=== PATIENT | female | born 1935 | race Caucasian/White ===

== ENCOUNTER → 2017-03-04 | Outpatient (CLI) | payer MEDICARE, BC, SELFPAY | PROVIDERS: Visit Provider Family Medicine | DX: N30.20 Other chronic cystitis without hematuria (principal); L29.3 Anogenital pruritus, unspecified | CPT/HCPCS: 80202; 96365; 96366; J3370 ==

== ENCOUNTER → 2017-03-22 18:01 | Outpatient (REF) | payer MEDICARE, BC, SELFPAY | LOC: LAB 18:01 | PROVIDERS: Visit Provider Urology | DX: N30.20 Other chronic cystitis without hematuria (principal) | CPT/HCPCS: 87086; 87088; 87186 ==

== ENCOUNTER → 2017-04-11 12:20 | Outpatient (CLI) | payer MEDICARE, BC, SELFPAY ==
--- NOTE | 2017-04-11 12:28 | MM_ITS ---
MM Dig mamm DX unilat RT CAD . ORDERING PHYSICIAN : Ayaan Veronica MD PATIENT AGE: 81 years GENDER: Female COMPARISON: Previous mammograms: 09/10/2016 INDICATION: Follow-up calcifications. TECHNIQUE: Magnification spot CC,, MLO, along with true 90 view right breast RIGHT BREAST: . Extensive calcifications are again seen throughout the right breast.. The larger calcifications are round spherical calcifications as might be seen with lipid cyst and/or fat necrosis. There are also multiple groupings of small punctate calcifications which have been seen previously inner followed today. The small calcifications within these groupings of calcifications have become slightly denser and also note slightly increased in number what appear to be benign round benign-appearing calcifications.. No no branching forms nor significant pleomorphic forms.. These are most all likely benign. I discussed this with technologist and understand she is somewhat difficult patient a she has some difficulty in following instructions and holding still.-Thus Given this combination of these features I believe a follow-up bilateral mammogram in 6 months to resume annual bilateral schedule is most feasible., given these are most likely benign groupings punctate calcifications, such as such as might be seen with benign adenosis The group of calcifications at site labeled A demonstrates progression of dense round benign calcifications with a few additional less well-defined forms, but overall benign appearance which can be followed. The area labeled B and C on the MLO view have slight draping pattern appearance to these dense punctate calcifications which are most likely reflection of a benign process. Area labeled D at the central breast appears to be benign punctate calcifications as well IMPRESSION: . multiple benign-appearing calcification groupings at right breast again evident, but with slight increased density and slight progression of these overall benign morphology calcifications. A difficult mammogram evaluate due these numerous slowly progressing, groups of benign calcifications. Close follow-up right mammogram suggested. Recommend ongoing 6 month follow-up, to resume annual scheduled. . BI-RADS Category: 2 Benign Finding(s) RECOMMENDED FOLLOW-UP: 6M - 6 MONTH FOLLOW-UP to resume annual scheduled (A letter has been sent to the patient regarding results of the study.)
== END ==
PROVIDERS: Family Provider Family Medicine; PCP Family Medicine; Visit Provider Family Medicine
DX: R92.8 Other abnormal and inconclusive findings on diagnostic imaging of breast (principal)
CPT/HCPCS: 77065

== ENCOUNTER 2017-06-06 22:34 | Inpatient (IN) | payer MEDICARE, BC, SELFPAY ==
[2017-06-06 22:40] VITALS: BP 140/53; PULSE 74; RESP 20; TEMP 39.3; O2SAT 91; BMI 25.8
[2017-06-06 23:08] LABS: Microscopic, Urine URINE MICROSCOPIC (MICROSCOPIC)
[2017-06-06 23:13] LABS: Basophils % 0.2 % (0.1-2.0); Eosinophils % 0.1 % (0.1-12.0); Hematocrit 39.5 % (37.0-47.0); Hemoglobin 13.4 g/dL (12.2-16.2); Lymphocytes % 13.5 K/mm3 (10-50); Mean Corpuscular HGB Conc 33.8 g/dL (31.8-35.4); Mean Corpuscular Hemoglobin 31.2 pg (27.0-31.2); Mean Corpuscular Volume 92.1 fl (81-99); Monocytes # 0.4 K/mm3 (0.1-1.0); Monocytes % 5.9 % (1.7-9.3); Neutrophils # 5.8 K/mm3 (1.8-7.8); Neutrophils % 80.3 % (37.0-80.0); Platelet Count 149 K/mm3 (142-424); Red Blood Count 4.29 M/mm3 (4.20-5.40); Red Cell Distribution Width 13.5 % (11.5-17.5); White Blood Count 7.2 K/mm3 (4.8-10.8)
--- NOTE | 2017-06-06 23:18 | HMH.EDAMS ---
ED Disposition Clinical Impression: Febrile illness, acute, Hypokalemia Urinary tract infection Qualifiers: Urinary tract infection type: site unspecified Hematuria presence: without hematuria Qualified Code(s): N39.0 - Urinary tract infection, site not specified Disposition: Admitted as Observation Condition on Discharge: Good Referrals: Ayaan Veronica MD [Primary Care Provider] - - Critical Care Critical Care Time: No Attestation: On 06/06/17, the high probability of a clinically significant, sudden or life threatening deterioration of the following system(s) required my full and direct attention, intervention and personal management. The time I documented below is in addition to time spent performing reported procedures but includes the following listed in this critical care notation. Medical Decision Making - Medical Records Medical records reviewed: Yes: I reviewed the patient's medical records. - Raheem Inquiry Pt receiving controlled substance: No Vital Signs: 06/06/17 22:40 06/07/17 00:07 Temperature 102.8 F H 98.9 F Temperature Source Rectal Oral Pulse Rate [Right Brachial] 74 65 Respiratory Rate 20 18 Blood Pressure [Right Arm] 140/53 121/82 Blood Pressure Mean [Right Arm] 82 95 Blood Pressure Source [Right Arm] Automatic Cuff Automatic Cuff Blood Pressure Position [Right Arm] Supine Supine 02 Sat by Pulse Oximetry 91 L 88 L Oxygen Delivery Method Room Air Room Air - Lab Data Lab results reviewed: Yes: I reviewed the patient's lab results. Lab Results 06/06/17 23:00: Urine Color Yellow, Urine Appearance Clear, Urine pH 6.0, Ur Specific [place] 1.025, Urine Protein 2+, Urine Glucose (UA) Negative, Urine Ketones Negative, Urine Blood 3+, Urine Nitrate Positive, Urine Bilirubin Negative, Urine Urobilinogen 0.2, Ur Leukocyte Esterase Trace, Urine RBC 10-20, Urine WBC 5-10, Urine Bacteria 4+ 06/06/17 23:00: WBC 7.2, RBC 4.29, Hgb 13.4, Hct 39.5, MCV 92.1, MCH 31.2, MCHC 33.8, RDW 13.5, Plt Count 149, MPV 9.0, Neut % (Auto) 80.3 H, Lymph % (Auto) 13.5, Heard % (Auto) 5.9, Eos % (Auto) 0.1, Baso % (Auto) 0.2, Neut # (Auto) 5.8, Lymph # (Auto) 1.0, Heard # (Auto) 0.4, Eos # (Auto) 0.0, Baso # (Auto) 0.0 06/06/17 23:00: Sodium 139, Potassium 2.9 L*, Chloride 100, Carbon Dioxide 31, Anion Gap 10.9, BUN 21 H, Creatinine 1.00, Estimated Creat Clear 53, Estimated GFR 53 L, Est GFR ( Amer) 65, Glucose 116 H, Calcium 8.7, Total Bilirubin 1.2 H, AST 16, ALT 26, Alkaline Phosphatase 75, Total Protein 6.9, Albumin 3.5, Globulin 3.4 H, Albumin/Globulin Ratio 1.0 L 06/06/17 23:00: Lactic Acid 1.7 Result diagrams: 06/06/17 23:00 06/06/17 23:00 Orders (Tests/Meds): ED MEDICATIONS Generic Name Dose Route Start Last Admin Trade Name Freq PRN Reason Stop Dose Admin Sodium Chloride 1,000 mls @ 999 mls/hr 06/07/17 00:15 06/07/17 00:08 Sod Chlor 0.9% 1000ml Bag IV 06/07/17 01:15 999 mls/hr .Q1H1M LEI Administration Discontinued Medications Generic Name Dose Route Start Last Admin Trade Name Freq PRN Reason Stop Dose Admin Acetaminophen 650 mg 06/06/17 22:50 06/06/17 23:14 Acetaminophen 650mg Suppository RC 06/06/17 22:51 650 mg ONCE ONE Administration ORDERS Category Date Time Status CT abdomen pelvis wo con Stat Cat Scan 06/06/17 23:37 Taken CXR AP view [XR chest AP] Stat Exams 06/06/17 23:37 Taken Blood Culture Stat Micro 06/06/17 23:00 Received Urine Culture Stat Micro 06/06/17 23:54 Received - Radiology Data #1 Image(s): Chest Image Reviewed: Yes I reviewed the patient's radiology image Preliminary Findings: Normal/NAD - CT Data CT Scan: Abdomen, Pelvis Time Received: 00:[address] Reviewed: Yes: I have viewed the radiologist's interpretation Preliminary Findings: Abnormal (see report) - Physician Consults Physician Consulted: navin Reason -: Admission Altered Mental Status HPI - General Chief Complaint: Urogenital-Fema
[2017-06-06 23:25] LABS: Appearance,Urine CLEAR (Clear); Bilirubin,Urine Negative (Negative); Blood, Urine 3+ (Negative); Color,Urine YELLOW (Yellow); Glucose,Urine (UA) Negative (Negative); Ketones,Urine Negative (Negative); Leukocyte Esterase,Urine TRACE (Negative); Nitrate,Urine POSITIVE (Negative); Protein,Urine 2+ (Negative); Specific Gravity, Urine 1.025 (1.005-1.030); Urobilinogen,Urine 0.2 EU/dl (0.2)
[2017-06-06 23:26] LABS: Lactic Acid 1.7 mmol/L (0.4-2.0)
--- NOTE | 2017-06-06 23:37 | XR_ITS ---
XR chest AP HISTORY: ITS.REASON: cough ORDERING PHYSICIAN: Ayaan Veronica MD PATIENT AGE: 81 years COMPARISON: 01/26/2017 FINDINGS: The cardiomediastinal silhouette and pulmonary vascularity are within normal limits. The lungs are clear without infiltrates, suspicious nodules, or pleural effusions. There are some increased markings in right lung base medially probably due to vascular overlap of may be confirmed with follow-up PA and lateral chest. No acute bony abnormalities. IMPRESSION: No acute finding. Please see above for detail
--- NOTE | 2017-06-06 23:37 | CT_ITS ---
CT abdomen pelvis wo con CLINICAL INDICATION: Generalized abdominal pain ITS.REASON: abd pain ORDERING PHYSICIAN: Ayaan Veronica MD PATIENT AGE: 81 years COMPARISON: 07 27 15 TECHNIQUE: Axial images obtained with sagittal and coronal reformats. PROCEDURE: Oral Contrast: None IV Contrast: None . FINDINGS: Atelectatic or fibrotic changes are present in the lung bases with subpleural nodularity left lung base posterior laterally slightly more prominent on today's exam measuring approximately 9 mm. Mild fatty liver with scattered calcifications in the liver and the spleen. No focal liver lesion. The gallbladder and pancreas and adrenal glands have an unremarkable unenhanced CT appearance. 13 mm isodensity upper pole left kidney and may be related to a cyst. There is mild ectasia of both renal collecting systems and ureters. Urinary bladder is not significantly distended. No obvious obstructing renal or ureteral calculi. Unremarkable appendix. No evidence of intestinal obstruction or free air. There are a few scattered air-fluid levels within nondistended small bowel nonspecific. Prior hysterectomy. No pelvic mass or focal inflammatory change or abnormal fluid collection. Chronic wedge compression changes are present at L1. IMPRESSION: 1. Mild prominence of the renal collecting systems and ureters possibly related to patient's hydration status with diuresis. No obstructing lesions or bladder outlet obstruction evident 2. No definite acute abdominal or pelvic findings. 3. Left lower lobe atelectasis or fibrosis with subpleural nodular component slightly more prominent. Continued follow-up recommended.
[2017-06-06 23:39] LABS: Alanine Aminotransferase 26 U/L (12-78); Albumin Level 3.5 gm/dL (3.4-5.0); Alkaline Phosphatase 75 U/L (46-116); Anion Gap 10.9 mEq/L (5-15); Aspartate Amino Transferase 16 U/L (15-37); Bilirubin,Total 1.2 mg/dL (0.2-1.0); Blood Urea Nitrogen 21 mg/dL (7-18); Calcium 8.7 mg/dL (8.5-10.1); Carbon Dioxide 31 mmol/L (21.0-32.0); Chloride 100 mmol/L (98-107); Creatinine Clearance Estimated 53 mL/min (0-300); Estimated Glomerular Filt Rate 53 ml/min (>60); GFR (African American) 65 ML/MIN (>60); Globulin 3.4 gm/dl (1.3-3.2); Glucose 116 mg/dL (74-106); Sodium 139 mmol/L (136-145); Total Protein,Serum 6.9 gm/dL (6.4-8.2)
[2017-06-06 23:46] LABS: Potassium 2.9 mmoL/L (3.5-5.1)
--- NOTE | 2017-06-06 23:47 | PC.NURSE ---
K+ 2.[address] Kendall
[2017-06-06 23:56] LABS: Bacteria,Urine 4+ /lpf
[2017-06-07] VITALS (9 sets, daily range): BP systolic 99–154; BP diastolic 50–82; PULSE 62–82; RESP 18–22; TEMP 37–39.4; O2SAT 88–96; BMI 28.6
--- NOTE | 2017-06-07 02:16 | PC.NURSE ---
Patient is a 81 year old white female admitted from Home with UTI. Family states has had a mental status change. Patient has a history of dementia and Alzheimers. Family also states a history of UTI'S. Patient has short term memory loss, impaired terminal system operator memory. Knows place, name, , and president at this time. Has been incontinent of urine. Is total dependent with home medications. Walks with a cane. Lungs are clear, resp even and non labored, abd soft and nontender. Is not able to state last BM, skin is intact.family doesn't know. Lives with spouse, 2 adult sons very involved in care also the poa's. Is afebrile at this time, v/s within normal range. IV is patent, bed locked in low position, side rails up x 2, call light within reach. Encouraged to use call light for needs. Was oriented to the unit. Will continue to monitor. .
--- NOTE | 2017-06-07 07:27 | P.CONPHA_ITS ---
[facility] Pharmacy VTE Monitoring - Patient Demographics Admission date: 06/07/17 Report Date: 06/07/17 Time: 07:26 Allergies/Adverse Reactions: Patient Allergies brompheniramine [From DRIXORAL] Allergy (Unknown, Verified 06/06/17 23:13) cephalexin [CEPHALEXIN] Allergy (Unknown, Verified 06/06/17 23:13) Cephalosporins [CEPHALOSPORINS] Allergy (Unknown, Verified 06/06/17 23:13) dexbrompheniramine [From DRIXORAL] Allergy (Unknown, Verified 06/06/17 23:13) ibuprofen [IBUPROFEN] Allergy (Unknown, Verified 06/06/17 23:13) nitrofurantoin [NITROFURANTOIN] Allergy (Unknown, Verified 06/06/17 23:13) Penicillins [PENICILLINS] Allergy (Unknown, Verified 06/06/17 23:13) pseudoephedrine [From DRIXORAL] Allergy (Unknown, Verified 06/06/17 23:13) Sulfa (Sulfonamide Antibiotics) [SULFA (SULFONAMIDE ANTIBIOTICS)] Allergy ( Unknown, Verified 06/06/17 23:13) Height: 1.65 m Weight: 78.103 kg Patient Problems: Current Active Problems Febrile illness, acute (Acute) Urinary tract infection (Acute) Hypokalemia (Acute) - VTE Risk Labs: VTE Related Lab Results Hgb 13.4 g/dL (12.2-16.2) 06/06/17 23:00 Hct 39.5 % (37.0-47.0) 06/06/17 23:00 Plt Count 149 K/mm3 (142-424) 06/06/17 23:00 BUN 21 mg/dL (7-18) H 06/06/17 23:00 Creatinine 1.00 mg/dL (0.55-1.02) 06/06/17 23:00 Estimated Creat Clear 53 mL/min (0-300) 06/06/17 23:00 VTE Score: 5 VTE Risk Level: Low Risk - Prophylaxis VTE Prophylaxis Ordered?: Yes Types of VTE Prophylaxis: TEDS Knee High Location of Applied Device: Bilateral Lower Extremeties - VTE Diagnosis Confirmed Treatment or plan recommended: Continue Current Treatment
[2017-06-07 07:39] LABS: Basophils % 0.2 % (0.1-2.0); Eosinophils % 0.3 % (0.1-12.0); Hematocrit 39.3 % (37.0-47.0); Lymphocytes # 0.4 K/mm3 (0.7-4.5); Lymphocytes % 7.4 K/mm3 (10-50); Mean Corpuscular HGB Conc 33.1 g/dL (31.8-35.4); Mean Corpuscular Hemoglobin 30.7 pg (27.0-31.2); Mean Corpuscular Volume 92.9 fl (81-99); Mean Platelet Volume 8.8 fl (7.4-10.4); Monocytes # 0.3 K/mm3 (0.1-1.0); Monocytes % 5.4 % (1.7-9.3); Neutrophils % 86.7 % (37.0-80.0); Platelet Count 133 K/mm3 (142-424); Red Blood Count 4.23 M/mm3 (4.20-5.40); Red Cell Distribution Width 13.6 % (11.5-17.5); White Blood Count 5.8 K/mm3 (4.8-10.8)
[2017-06-07 07:46] LABS: Blood Urea Nitrogen 16 mg/dL (7-18); Carbon Dioxide 33 mmol/L (21.0-32.0); Chloride 102 mmol/L (98-107); Creatinine Clearance Estimated 55 mL/min (0-300); Creatinine,Serum 0.88 mg/dL (0.55-1.02); Estimated Glomerular Filt Rate 62 ml/min (>60); GFR (African American) 75 ML/MIN (>60); Glucose 102 mg/dL (74-106); Sodium 141 mmol/L (136-145)
[2017-06-07 08:07] LABS: MANUAL DIFFERENTIAL MANUAL DIFFERENTIAL (MANUAL DIFF)
--- NOTE | 2017-06-07 08:36 | XR_ITS ---
XR chest 2V HISTORY: ITS.REASON: Fever ORDERING PHYSICIAN: Ayaan Veronica MD PATIENT AGE: 81 years COMPARISON: 1917 FINDINGS: The cardiomediastinal silhouette and pulmonary vascularity are within normal limits. The lungs are clear without infiltrates, suspicious nodules, or pleural effusions. Previously noted density in the right lung base less apparent consistent with overlying vessel. There is mild wedging of the L1 vertebral body which is chronic. IMPRESSION: No acute finding
[2017-06-07 09:09] LABS: Adenovirus,PCR Not Detected (NotDetected); Bordetella Pertussis Not Detected (NotDetected); Chlamydophila Pneumoniae, PCR Not Detected (NotDetected); Coronavirus 229E Not Detected (NotDetected); Coronavirus NL63 Not Detected (NotDetected); Coronavirus OC43 Not Detected (NotDetected); Coronovirus HKU1,PCR Not Detected (NotDetected); Human Metapneumovirus Not Detected (NotDetected); Influenza A, PCR Not Detected (NotDetected); Influenza AH1, 2009 Not Detected (NotDetected); Influenza AH1, PCR Not Detected (NotDetected); Influenza AH3,PCR Not Detected (NotDetected); Influenza B, PCR Not Detected (NotDetected); Mycoplasma Pneumoniae, PCR Not Detected (NotDected); Parainfluenza 1, PCR Not Detected (NotDetected); Parainfluenza 2, PCR Not Detected (NotDetected); Parainfluenza 3, PCR Not Detected (NotDetected); Parainfluenza 4, PCR Not Detected (NotDetected); Respiratory Syncytial Virus Not Detected (NotDetected); Rhinovirus/Enterovirus Not Detected (NotDetected)
--- NOTE | 2017-06-07 09:28 | HMH.HP ---
*Admission Date: 06/07/17 <Angelica Barron 06/07/17 09:29> *Chief complaint: Altered mental status; fever <Angelica Barron 06/07/17 09:29> *History of present illness: Patient is a poor historian and family is not present. According to ER records she presented via EMS with fever, hypokalemia, altered mental status and foul smelling urine. Workup in the emergency room indicated a urinary tract infection; she continued to have a fever and was admitted for further evaluation and treatment This a.m. denies pain, shortness of breath, abdominal pain, but describes some nausea. <Angelica Barron 06/07/17 09:53> [facility] History Medical History: Reports:: Anxiety, Atherosclerotic Heart Disease, Coronary Artery Disease, Deep Vein Thrombosis, Hypertension, Myocardial Infarction Denies:: Cancer, Diabetes Mellitus Type 1, Diabetes Mellitus Type 2, MRSA <Angelica Barron 06/07/17 09:53> Other Medical History: Reports: Arthritis, Hypothyroidism <Angelica Barron 06/07/17 09:29> Other Surgeries: Yes: Hysterectomy-Total, Other <Angelica Barron 06/07/17 09:53> Amputation: No <Angelica Barron 06/07/17 09:29> Comment: Other surgeries: Kidney stone extraction 1973; D&C 1980; stent placement 1998; patellar fracture 2005; thyroid nodule removed for 2007 leg ulcers 2008: Cataract surgery <Angelica Barron 06/07/17 09:53> - *Social History Educational Level: Completed GED/General Educational Development <Angelica Barron 06/07/17 09:29> Smoking Status: Former smoker <Angelica Barron 06/07/17 09:29> Tobacco Type: cigarettes <Angelica Barron 06/07/17 09:29> # Packs/Day (cigarettes): 1 <Angelica Barron 06/07/17 09:29> #Yrs smoked (if former smoker): 30 <Angelica Barron 06/07/17 09:29> Alcohol Intake: never <Angelica Barron 06/07/17 09:29> Occupational Status: unemployed <Angelica Barron 06/07/17 09:29> Housing: house <Angelica Barron 06/07/17 09:29> Household Members: spouse <Angelica Barron 06/07/17 09:29> - Psychiatric History Expresses thoughts of harming self/others: None <Angelica Barron 06/07/17 09:29> Suicide Plan Description: No Plan <Angelica Barron 06/07/17 09:29> Comment: Dementia <Angelica Barron 06/07/17 09:53> *Family Hx:: Cancer, Coronary Artery Disease, Diabetes, Hyperlipidemia <Angelica Barron 06/07/17 09:53> Review of Systems - Constitutional Reports fever(s) <Angelica Barron 06/07/17 09:53> - ENT Denies sore throat <Angelica Barron 06/07/17 09:53> - *Cardiovascular Denies chest pain, Denies shortness of breath <Angelica Barron 06/07/17 09:53> - *Respiratory Denies cough, Denies shortness of breath <Angelica Barron 06/07/17 09:53> - *Gastrointestinal Reports nausea, Denies abdominal pain <Angelica Barron 06/07/17 09:53> - *Neurologic Reports confusion, Denies seizure-like activity <Angelica Barron 06/07/17 09:29> Meds Home Medications Medication Instructions Recorded Confirmed Type Calcium Carbonate/Vitamin D3 1 tab PO DAILY 06/06/17 06/07/17 History [Calcium 500 mg Chewable Tablet] Cholecalciferol (Vitamin D3) 5,000 unit PO DAILY 06/06/17 06/07/17 History [Vitamin D3] Citalopram Hydrobromide [Celexa] 40 mg PO DAILY 06/06/17 06/07/17 History Donepezil HCl [Aricept 10mg tablet] 10 mg PO HS 06/06/17 06/07/17 History Gabapentin [Neurontin 300mg 300 mg PO HS 06/06/17 06/07/17 History capsule] Levothyroxine Sodium 75 mcg PO DAILY 06/06/17 06/07/17 History [Levothyroxine 75mcg (0.075mg) Tab] Memantine HCl [Memantine HCl] 10 mg PO BID 06/06/17 06/07/17 History Multivitamin [Multivitamins] 1 tab PO DAILY 06/06/17 06/07/17 History Oxybutynin Chloride [Ditropan Xl] 10 mg PO DAILY 06/06/17 06/07/17 History Pantoprazole Sodium [Protonix 40mg 40 mg PO BID 06/06/17 06/07/17 History tablet] Phenazopyridine HCl 200 mg PO TID 06/06/17 06/07/17 History Polyethylene Glycol 3350 [Miralax 17 gm PO DAILY 06/06/17 06/07/17 History 17gm Packet] Simvastatin 40 mg PO HS 06/06/17
[2017-06-07 13:35] LABS: Lymphocytes % 7 % (10-50); Monocytes % 7 % (2-9); Neutrophils % 86 % (42-76); Platelet Estimate Normal; RBC Morphology Normal; Total Cells Counted 100
--- NOTE | 2017-06-07 16:48 | PC.NURSE ---
pt lungs are clear. alert to self, place, and situation. bowel sounds normal and heart sounds normal. no edema noted. teds are on. pt ambulates with assist to bathroom. alarm is on. iv patent and fluids running per order. pt has stated no pain or discomfort. call light in reach and pt oriented on how to use call light. will continue to monitor pt condition.
--- NOTE | 2017-06-07 18:00 | PC.NURSE ---
pt stating pain in legs. prn Tylenol given per may order and warm blanket applied to legs. md on floor and stated that he will put tramadol prn order in if pain hasn't relieved in an hour to give. will check and pass on to oncoming shift.
--- NOTE | 2017-06-07 19:14 | PC.NURSE ---
report given to suyapa ramirez rn
[2017-06-08 04:00] VITALS: BP 109/59; PULSE 65; RESP 22; TEMP 37.2; O2SAT 96
--- NOTE | 2017-06-08 04:48 | PC.NURSE ---
pt had hat in her toilet but urinated behind it
--- NOTE | 2017-06-08 05:20 | PC.NURSE ---
Pt slept well this shift. Nothing acute to report. IV abx and fluids infused well. Pt with repetitive questions concerning where is and when he is coming back. Oriented with each opportunity. Pt rings appropriately, nothing acute or significant to report this shift. Pt remained safe and stable.
--- NOTE | 2017-06-08 07:52 | PC.NURSE ---
Bedside report given to Sunita Madison RN leaving pt safe and stable.
[2017-06-08 08:00] VITALS: BP 106/56; PULSE 61; RESP 18; TEMP 36.9; O2SAT 95
--- NOTE | 2017-06-08 08:13 | HMH.ACPN2 ---
<Angelica Barron - Last Filed: 06/08/17 08:13> Internal Medicine - PN: Subj *Date: 06/08/17 *Time: 08:13 Interval history: Patient and nursing staff state that Ms. Zuniga slept well. She says she does not feel well today. She is having low back pain and lower abdominal pain. She does not have nausea but does not want to eat. Per nursing: Afebrile during the night. Urine culture shows gram-negative rods with pending ID. Exam Vital signs and Labs for Last 24 Hours: Temp Pulse Resp BP Pulse Ox 98.9 F 65 22 109/59 96 06/08/17 04:00 06/08/17 04:00 06/08/17 04:00 06/08/17 04:00 06/08/17 04:00 Laboratory Results - last 24 hr 06/07/17 07:15: Total Counted 100, Neutrophils % (Manual) 86 H, Lymphocytes % (Manual) 7 L, Monocytes % (Manual) 7, Platelet Estimate Normal, RBC Morphology Normal 06/07/17 09:00: Chlamy pneumoniae PCR Not detected, Adenovirus (PCR) Not detected, B.parapertussis DNA PCR Not detected, Coronavirus OC43 (PCR) Not detected, Coronavirus HKU1 (PCR) Not detected, Coronavirus 229E (PCR) Not detected, Coronavirus NL63 (PCR) Not detected, Human Metapneumovir PCR Not detected, Influenza A (H1) PCR Not detected, Influ A (H1N1/09) PCR Not detected, Influenza A (H3) PCR Not detected, Influenza Type A (PCR) Not detected, Influenza Type B (PCR) Not detected, M. pneumoniae (PCR) Not detected, Parainfluenza 1 (PCR) Not detected, Parainfluenza 2 (PCR) Not detected, Parainfluenza 3 (PCR) Not detected, Parainfluenza 4 (PCR) Not detected, RSV (PCR) Not detected, Entero/Rhino (PCR) Not detected I & O for Last 24 hours: Intake & Output 06/05/17 06/06/17 06/07/17 06/08/17 11:59 11:59 11:59 11:59 Intake Total 180 / 1780 1462 / 1462 Balance 180 / 1780 1462 / 1462 Weight 172 lb 3 oz - Constitutional no acute distress Comments: Awake and alert; sitting up in the bed; assisted with drinking water. - *Routine Respiratory Exam Comments: Bilateral upper airway sounds. - *Routine Cardiovascular Exam Present: RRR - *Routine Abdominal Exam Present: soft, normoactive bowel sounds, tenderness (Suprapubic region.) - *Routine Extremities Exam Absent: edema, calf tenderness - *Routine Neurological Exam Present: alert (Asking for her .) Assessment and Plan (1) Urinary tract infection Current visit: Yes Status: Acute Qualifiers: Urinary tract infection type: site unspecified Hematuria presence: without hematuria Qualified Code(s): N39.0 - Urinary tract infection, site not specified Category: Medical Code(s): N39.0 - Urinary tract infection, site not specified (2) Febrile illness, acute Current visit: Yes Status: Acute Category: Medical Code(s): R50.9 - Fever, unspecified (3) Dementia Current visit: Yes Status: Chronic Category: Medical Code(s): F03.90 - Unspecified dementia without behavioral disturbance (4) Hypothyroidism Current visit: Yes Status: Chronic Category: Medical Code(s): E03.9 - Hypothyroidism, unspecified (5) CAD (coronary artery disease) Current visit: Yes Status: Chronic Category: Medical Code(s): I25.10 - Atherosclerotic heart disease of [place] coronary artery without angina pectoris (6) Hypokalemia Current visit: Yes Status: Acute Category: Medical Code(s): E87.6 - Hypokalemia <Ayaan Veronica - Last Filed: 06/08/17 09:18> Internal Medicine - PN: Subj *Date: 06/08/17 *Time: 09:15 Exam Vital signs and Labs for Last 24 Hours: Temp Pulse Resp BP Pulse Ox 98.5 F 61 18 106/56 95 06/08/17 08:00 06/08/17 08:00 06/08/17 08:00 06/08/17 08:00 06/08/17 08:00 Laboratory Results - last 24 hr 06/07/17 07:15: Total Counted 100, Neutrophils % (Manual) 86 H, Lymphocytes % (Manual) 7 L, Monocytes % (Manual) 7, Platelet Estimate Normal, RBC Morphology Normal 06/07/17 09:00: Chlamy pneumoniae PCR Not detected, Adenovirus (PCR) Not detected, B.parapertussis DNA PCR Not detected, Co
--- NOTE | 2017-06-08 08:16 | P.PN_ITS ---
<Angelica Barron - Last Filed: 06/08/17 08:13> Internal Medicine - PN: Subj *Date: 06/08/17 *Time: 08:13 Interval history: Patient and nursing staff state that Ms. Zuniga slept well. She says she does not feel well today. She is having low back pain and lower abdominal pain. She does not have nausea but does not want to eat. Per nursing: Afebrile during the night. Urine culture shows gram-negative rods with pending ID. Exam Vital signs and Labs for Last 24 Hours: Temp Pulse Resp BP Pulse Ox 98.9 F 65 22 109/59 96 06/08/17 04:00 06/08/17 04:00 06/08/17 04:00 06/08/17 04:00 06/08/17 04:00 Laboratory Results - last 24 hr 06/07/17 07:15: Total Counted 100, Neutrophils % (Manual) 86 H, Lymphocytes % ( Manual) 7 L, Monocytes % (Manual) 7, Platelet Estimate Normal, RBC Morphology Normal 06/07/17 09:00: Chlamy pneumoniae PCR Not detected, Adenovirus (PCR) Not detected, B.parapertussis DNA PCR Not detected, Coronavirus OC43 (PCR) Not detected, Coronavirus HKU1 (PCR) Not detected, Coronavirus 229E (PCR) Not detected, Coronavirus NL63 (PCR) Not detected, Human Metapneumovir PCR Not detected, Influenza A (H1) PCR Not detected, Influ A (H1N1/09) PCR Not detected , Influenza A (H3) PCR Not detected, Influenza Type A (PCR) Not detected, Influenza Type B (PCR) Not detected, M. pneumoniae (PCR) Not detected, Parainfluenza 1 (PCR) Not detected, Parainfluenza 2 (PCR) Not detected, Parainfluenza 3 (PCR) Not detected, Parainfluenza 4 (PCR) Not detected, RSV (PCR ) Not detected, Entero/Rhino (PCR) Not detected I & O for Last 24 hours: Intake & Output 06/05/17 06/06/17 06/07/17 06/08/17 11:59 11:59 11:59 11:59 Intake Total 180 / 1780 1462 / 1462 Balance 180 / 1780 1462 / 1462 Weight 172 lb 3 oz - Constitutional no acute distress Comments: Awake and alert; sitting up in the bed; assisted with drinking water. - *Routine Respiratory Exam Comments: Bilateral upper airway sounds. - *Routine Cardiovascular Exam Present: RRR - *Routine Abdominal Exam Present: soft, normoactive bowel sounds, tenderness (Suprapubic region.) - *Routine Extremities Exam Absent: edema, calf tenderness - *Routine Neurological Exam Present: alert (Asking for her .) Assessment and Plan (1) Urinary tract infection Current visit: Yes Status: Acute Qualifiers: Urinary tract infection type: site unspecified Hematuria presence: without hematuria Qualified Code(s): N39.0 - Urinary tract infection, site not specified Category: Medical Code(s): N39.0 - Urinary tract infection, site not specified (2) Febrile illness, acute Current visit: Yes Status: Acute Category: Medical Code(s): R50.9 - Fever , unspecified (3) Dementia Current visit: Yes Status: Chronic Category: Medical Code(s): F03.90 - Unspecified dementia without behavioral disturbance (4) Hypothyroidism Current visit: Yes Status: Chronic Category: Medical Code(s): E03.9 - Hypothyroidism, unspecified (5) CAD (coronary artery disease) Current visit: Yes Status: Chronic Category: Medical Code(s): I25.10 - Atherosclerotic heart disease of [place] coronary artery without angina pectoris (6) Hypokalemia Current visit: Yes Status: Acute Category: Medical Code(s): E87.6 - Hypokalemia <Ayaan Veronica - Last Filed: 06/08/17 09:18> Internal Medicine - PN: Subj *Date: 06/08/17 *Time: 09:15
[2017-06-08 09:46] LABS: Basophils % 0.1 % (0.1-2.0); Eosinophils # 0.1 K/mm3 (0.0-0.4); Eosinophils % 2.7 % (0.1-12.0); Hematocrit 37.9 % (37.0-47.0); Hemoglobin 12.2 g/dL (12.2-16.2); Lymphocytes % 22.7 K/mm3 (10-50); Mean Corpuscular HGB Conc 32.1 g/dL (31.8-35.4); Mean Corpuscular Hemoglobin 29.9 pg (27.0-31.2); Mean Corpuscular Volume 92.9 fl (81-99); Mean Platelet Volume 8.4 fl (7.4-10.4); Monocytes # 0.3 K/mm3 (0.1-1.0); Monocytes % 6.7 % (1.7-9.3); Neutrophils # 3.1 K/mm3 (1.8-7.8); Neutrophils % 67.8 % (37.0-80.0); Platelet Count 142 K/mm3 (142-424); Red Blood Count 4.08 M/mm3 (4.20-5.40); Red Cell Distribution Width 13.7 % (11.5-17.5); White Blood Count 4.5 K/mm3 (4.8-10.8)
[2017-06-08 09:53] LABS: Anion Gap 8.2 mEq/L (5-15); Blood Urea Nitrogen 13 mg/dL (7-18); Carbon Dioxide 33 mmol/L (21.0-32.0); Chloride 104 mmol/L (98-107); Creatinine Clearance Estimated 55 mL/min (0-300); Creatinine,Serum 0.88 mg/dL (0.55-1.02); Estimated Glomerular Filt Rate 62 ml/min (>60); GFR (African American) 75 ML/MIN (>60); Glucose 101 mg/dL (74-106); Potassium 3.2 mmoL/L (3.5-5.1); Sodium 142 mmol/L (136-145)
[2017-06-08 16:00] VITALS: BP 126/81; PULSE 61; RESP 20; TEMP 37.1; O2SAT 99
[2017-06-08 18:02] VITALS: BMI 28.7
--- NOTE | 2017-06-08 18:36 | PC.NURSE ---
81 YEAR OLD FEMALE PRESENTED TO THE HOSPITAL ON 06/07/17 WITH A DIAGNOSIS OF UTI, SHE HAS DONE WELL TODAY. SHE HAS A HISTORY OF DEMENTIA AND IS VERY COOPERATIVE. HER HAS BEEN AT BEDSIDE THIS AFTERNOON. SHE CONTINUES WITH IV FLUIDS WITH POTASSIUM 20MEQ ADDED ALONG WITH PO POTASSIUM. POTASSIUM ON ADMISSION WAS 2.9 THIS AM 3.2. SHE HAD A POSITIVE BLOOD CULTURE TODAY GRAM NEGATIVE RODS PER LAB. SHE HAS HER ULISES HOSE ON AND HAS AMBULATED WITH ASSIST TO THE BATHROOM SEVERAL TIMES. SHE CONTINUES ON 2 LITERS OF OXYGEN PER NASAL CANULA. WILL CONTINUE TO MONITOR. KELL PANTOJA MSN, RN
--- NOTE | 2017-06-08 19:20 | PC.NURSE ---
report given to daniel
[2017-06-08 20:00] VITALS: BP 113/52; PULSE 63; RESP 22; TEMP 37.4; O2SAT 93; O2SAT 97
[2017-06-08 21:39] VITALS: O2SAT 93
[2017-06-09 03:42] VITALS: BP 143/56; PULSE 69; RESP 24; TEMP 37.4; O2SAT 94
--- NOTE | 2017-06-09 03:46 | PC.NURSE ---
She is alert to person and place. Has been ambulating with assist x1 to the bathroom multiple times t/o the night. Low grade temp noted. PO fluids encouraged. Safety set and call light in place.
--- NOTE | 2017-06-09 07:32 | PC.NURSE ---
REPORT GIVEN TO King HAYES W/C
[2017-06-09 08:00] VITALS: BP 126/51; PULSE 67; RESP 22; TEMP 37.2; O2SAT 94
--- NOTE | 2017-06-09 08:13 | HMH.ACPN2 ---
<Berenice Roberto - Last Filed: 06/09/17 08:13> Internal Medicine - PN: Subj *Date: 06/09/17 *Time: 08:13 Interval history: Patient states she is feeling better today. She denies any pain. She wants to go home. She states she did not sleep well last night but she did try to eat some of her breakfast. Exam Vital signs and Labs for Last 24 Hours: Temp Pulse Resp BP Pulse Ox 99.3 F 69 24 143/56 94 L 06/09/17 03:42 06/09/17 03:42 06/09/17 03:42 06/09/17 03:42 06/09/17 03:42 Laboratory Results - last 24 hr 06/08/17 09:35: WBC 4.5 L, RBC 4.08 L, Hgb 12.2, Hct 37.9, MCV 92.9, MCH 29.9, MCHC 32.1, RDW 13.7, Plt Count 142, MPV 8.4, Neut % (Auto) 67.8, Lymph % (Auto) 22.7, [place] % (Auto) 6.7, Eos % (Auto) 2.7, Baso % (Auto) 0.1, Neut # (Auto) 3.1, Lymph # (Auto) 1.0, [place] # (Auto) 0.3, Eos # (Auto) 0.1, Baso # (Auto) 0.0 06/08/17 09:35: Sodium 142, Potassium 3.2 L, Chloride 104, Carbon Dioxide 33 H, Anion Gap 8.2, BUN 13, Creatinine 0.88, Estimated Creat Clear 55, Estimated GFR 62, Est GFR ( Amer) 75, Glucose 101 I & O for Last 24 hours: Intake & Output 06/06/17 06/07/17 06/08/17 06/09/17 11:59 11:59 11:59 11:59 Intake Total 180 / 1780 1682 / 1682 1013 / 1013 Output Total 300 / 300 Balance 180 / 1780 1682 / 1682 713 / 713 Weight 172 lb 3 oz 172 lb 3.002 oz - Constitutional no acute distress - *Routine Respiratory Exam Present: CTA bilaterally - *Routine Cardiovascular Exam Present: RRR - *Routine Abdominal Exam Present: soft, normoactive bowel sounds. Absent: tenderness - *Routine Extremities Exam Absent: edema Assessment and Plan (1) E. coli UTI Current visit: Yes Status: Acute Category: Medical Code(s): N39.0 - Urinary tract infection, site not specified; B96.20 - Unspecified Escherichia coli [E. coli] as the cause of diseases classified elsewhere (2) Febrile illness, acute Current visit: Yes Status: Acute Category: Medical Code(s): R50.9 - Fever, unspecified (3) Bacteremia Current visit: Yes Status: Acute Category: Medical Code(s): R78.81 - Bacteremia (4) Dementia Current visit: Yes Status: Chronic Category: Medical Code(s): F03.90 - Unspecified dementia without behavioral disturbance (5) Hypothyroidism Current visit: Yes Status: Chronic Category: Medical Code(s): E03.9 - Hypothyroidism, unspecified (6) CAD (coronary artery disease) Current visit: Yes Status: Chronic Category: Medical Code(s): I25.10 - Atherosclerotic heart disease of [place] coronary artery without angina pectoris (7) Hypokalemia Current visit: Yes Status: Acute Category: Medical Code(s): E87.6 - Hypokalemia - Assessment and plan all Dx Assessment and Plan for all problems:: Still awaiting blood cultures. Will discuss further care with Dr. Veronica. <Ayaan Veronica - Last Filed: 06/09/17 08:21> Internal Medicine - PN: Subj *Date: 06/09/17 *Time: 08:19 Exam Vital signs and Labs for Last 24 Hours: Temp Pulse Resp BP Pulse Ox 99.3 F 69 24 143/56 94 L 06/09/17 03:42 06/09/17 03:42 06/09/17 03:42 06/09/17 03:42 06/09/17 03:42 Laboratory Results - last 24 hr 06/08/17 09:35: WBC 4.5 L, RBC 4.08 L, Hgb 12.2, Hct 37.9, MCV 92.9, MCH 29.9, MCHC 32.1, RDW 13.7, Plt Count 142, MPV 8.4, Neut % (Auto) 67.8, Lymph % (Auto) 22.7, [place] % (Auto) 6.7, Eos % (Auto) 2.7, Baso % (Auto) 0.1, Neut # (Auto) 3.1, Lymph # (Auto) 1.0, [place] # (Auto) 0.3, Eos # (Auto) 0.1, Baso # (Auto) 0.0 06/08/17 09:35: Sodium 142, Potassium 3.2 L, Chloride 104, Carbon Dioxide 33 H, Anion Gap 8.2, BUN 13, Creatinine 0.88, Estimated Creat Clear 55, Estimated GFR 62, Est GFR ( Amer) 75, Glucose 101 I & O for Last 24 hours: Intake & Output 06/06/17 06/07/17 06/08/17 06/09/17 11:59 11:59 11:59 11:59 Intake Total 180 / 1780 1682 / 1682 1013 / 1013 Output Total 300 / 300 Balance 180 / 1780 1682 / 1682 713 / 713 Weight 17
--- NOTE | 2017-06-09 21:01 | HMH.DCSUM ---
General - General Admission date: 06/07/17 <Berenice Roberto - 06/09/17 21:52> Discharge date: 06/09/17 <Berenice Roberto - 06/09/17 21:52> HPI HPI: Ms. Zuniga is an 81yo female who is a poor historian and family is not present. According to ER records she presented via EMS with fever, hypokalemia, altered mental status and foul smelling urine. Workup in the emergency room indicated a urinary tract infection; she continued to have a fever and was admitted for further evaluation and treatment. <Berenice Roberto - 06/09/17 21:52> Hospital Course Hospital Course: A respiratory PCR panel and a 2 view CXR were ordered. Both were negative. She was continued on abx, IV's, potassium, and some of her home meds. The patient's urine cx grew out E. Coli. Her blood cultures were positive but the final result is not yet back. It was felt this was likely E. Coli as well and after her symptoms improved, she was stable to be discharged home on abx. <FelisaKaliaa - 06/09/17 21:52> Objective Vital signs: Temp Pulse Resp BP Pulse Ox 98.9 F 67 22 126/51 94 L 06/09/17 08:00 06/09/17 08:00 06/09/17 08:00 06/09/17 08:00 06/09/17 08:00 <JeremíasAyaan alvarado - 06/13/17 21:54> Temp Pulse Resp BP Pulse Ox 98.9 F 67 22 126/51 94 L 06/09/17 08:00 06/09/17 08:00 06/09/17 08:00 06/09/17 08:00 06/09/17 08:00 <Berenice Roberto - 06/09/17 21:52> Narrative: - Constitutional no acute distress, cooperative - *Routine HEENT Exam Head: Present: normocephalic, atraumatic Eye: Present: PERRL ENT: Present: mucous membranes dry, oropharynx clear - *Routine Neck Exam Present: supple. Absent: carotid bruit, lymphadenopathy, thyromegaly - *Routine Respiratory Exam Present: CTA bilaterally - *Routine Cardiovascular Exam Present: RRR - *Routine Abdominal Exam Present: soft, normoactive bowel sounds. Absent: tenderness, distended, guarding - *Routine Extremities Exam Absent: edema, calf tenderness - *Routine Neurological Exam Present: alert oriented to place - Routine Psychiatric Exam Present: cooperative. Absent: normal thought process <Berenice Roberto - 06/09/17 21:52> DS: Diagnosis - Discharge Diagnosis (1) E. coli UTI Status: Acute (2) Febrile illness, acute Status: Acute (3) Bacteremia Status: Acute (4) Dementia Status: Chronic (5) Hypothyroidism Status: Chronic (6) CAD (coronary artery disease) Status: Chronic (7) Hypokalemia Status: Acute <Berenice Roberto - 06/09/17 21:01> (1) E. coli UTI Status: Acute (2) Bacteremia Status: Acute (3) Dementia Status: Chronic (4) Hypothyroidism Status: Chronic (5) CAD (coronary artery disease) Status: Chronic (6) Hypokalemia Status: Acute <Ayaan Veronica - 06/13/17 21:54> Discharge Plan - Patient Discharge Instructions ACTIVITY: Continue current activity <Berenice Roberto - 06/09/17 21:52> DIET: continue same diet <Berenice Roberto - 06/09/17 21:52> Patient Instructions: DI for Escherichia Coli Infection, Urinary Tract Infection, Escherichia coli Infection <Ayaan Veronica - 06/13/17 21:54> Forms: <Ayaan Veronica - 06/13/17 21:54> - Follow up Plan Follow up with: Ayaan Veronica MD [Primary Care Provider] - 1 week <Ayaan Veronica - 06/13/17 21:54> Disposition: Home, Self-Care <Ayaan Veronica - 06/13/17 21:54> Home Medications: Home Medications Medication Instructions Recorded Confirmed Type Calcium Carbonate/Vitamin D3 1 tab PO DAILY 06/06/17 06/07/17 History [Calcium 500 mg Chewable Tablet] Cholecalciferol (Vitamin D3) 5,000 unit PO DAILY 06/06/17 06/07/17 History [Vitamin D3] Citalopram Hydrobromide [Celexa] 40 mg PO DAILY 06/06/17 06/07/17 History Donepezil HCl [Aricept 10mg tablet] 10 mg PO HS 06/06/17 06/07/17 History Gabapentin [Neurontin 30
--- NOTE | 2017-06-09 21:46 | P.DS_ITS ---
General - General Admission date: 06/07/17 <Berenice Roberto - 06/09/17 21:52> Discharge date: 06/09/17 <Berenice Roberto - 06/09/17 21:52> HPI HPI: Ms. Zuniga is an 81yo female who is a poor historian and family is not present. According to ER records she presented via EMS with fever, hypokalemia , altered mental status and foul smelling urine. Workup in the emergency room indicated a urinary tract infection; she continued to have a fever and was admitted for further evaluation and treatment. <Berenice Roberto - 06/09/17 21:52> Hospital Course Hospital Course: A respiratory PCR panel and a 2 view CXR were ordered. Both were negative. She was continued on abx, IV's, potassium, and some of her home meds. The patient's urine cx grew out E. Coli. Her blood cultures were positive but the final result is not yet back. It was felt this was likely E. Coli as well and after her symptoms improved, she was stable to be discharged home on abx. <FelisaKaliaa - 06/09/17 21:52> Objective Vital signs: Temp Pulse Resp BP Pulse Ox 98.9 F 67 22 126/51 94 L 06/09/17 08:00 06/09/17 08:00 06/09/17 08:00 06/09/17 08:00 06/09/17 08:00 <JeremíasAyaan alvarado - 06/13/17 21:54> Temp Pulse Resp BP Pulse Ox 98.9 F 67 22 126/51 94 L 06/09/17 08:00 06/09/17 08:00 06/09/17 08:00 06/09/17 08:00 06/09/17 08:00 <Berenice Roberto - 06/09/17 21:52> Narrative: - Constitutional no acute distress, cooperative - *Routine HEENT Exam Head: Present: normocephalic, atraumatic Eye: Present: PERRL ENT: Present: mucous membranes dry, oropharynx clear - *Routine Neck Exam Present: supple. Absent: carotid bruit, lymphadenopathy, thyromegaly - *Routine Respiratory Exam Present: CTA bilaterally - *Routine Cardiovascular Exam Present: RRR - *Routine Abdominal Exam Present: soft, normoactive bowel sounds. Absent: tenderness, distended, guarding - *Routine Extremities Exam Absent: edema, calf tenderness - *Routine Neurological Exam Present: alert oriented to place - Routine Psychiatric Exam Present: cooperative. Absent: normal thought process <Berenice Roberto - 06/09/17 21:52> DS: Diagnosis - Discharge Diagnosis (1) E. coli UTI Status: Acute (2) Febrile illness, acute Status: Acute (3) Bacteremia Status: Acute (4) Dementia Status: Chronic (5) Hypothyroidism Status: Chronic (6) CAD (coronary artery disease) Status: Chronic (7) Hypokalemia Status: Acute <Berenice Roberto - 06/09/17 21:01> (1) E. coli UTI Status: Acute (2) Bacteremia Status: Acute (3) Dementia Status: Chronic (4) Hypothyroidism Status: Chronic (5) CAD (coronary artery disease) Status: Chronic (6) Hypokalemia Status: Acute <Ayaan Veronica - 06/13/17 21:54> Discharge Plan - Patient Discharge Instructions ACTIVITY: Continue current activity <Berenice Roberto - 06/09/17 21:52> DIET: continue same diet <Berenice Roberto 06/09/17 21:52> Patient Instructions: DI for Escherichia Coli Infection, Urinary Tract Infection, Escherichia coli Infection <Ayaan Veronica - 06/13/17 21:54 > Forms: <Aayan Veronica - 06/13/17 21:54> - Follow up Plan Follow up with: Ayaan Veronica
--- NOTE | 2017-06-10 11:50 | SW/DCPLANNER ---
This patient has been set up with home health ([facility] Nurse will be set out today to begin home health services. Family agreed with this plan yesterday 06/09/17 at time of discharge.
== END 2017-06-09 13:05 | disposition home or self-care (01) | DRG 690 ==
LOC: ER 06-07 00:31 → 2ND 06-07 00:54
PROVIDERS: Nurse Practitioner Family; Admitting Provider Family Medicine; Emergency Provider Emergency Medicine; Family Provider Family Medicine; PCP Family Medicine; Visit Provider Family Medicine
DX: N39.0 Urinary tract infection, site not specified (principal); F03.90 Unspecified dementia, unspecified severity, without behavioral disturbance, psychotic disturbance, mood disturbance, and anxiety; B96.20 Unspecified Escherichia coli [E. coli] as the cause of diseases classified elsewhere; E03.9 Hypothyroidism, unspecified; I10 Essential (primary) hypertension; I25.10 Atherosclerotic heart disease of native coronary artery without angina pectoris; E87.6 Hypokalemia; I25.2 Old myocardial infarction; Z87.891 Personal history of nicotine dependence; Z86.718 Personal history of other venous thrombosis and embolism
CPT/HCPCS: 36415; 71045; 71046; 74176; 80048; 80053; 81001; 83605; 85007; 85025; 87040; 87077; 87086; 87088; 87186; 87486; 87581; 87633; 87798; 94760; 94761; 96365; 96366; 96367; 99211; 99284; J1956

== ENCOUNTER → 2017-08-02 19:04 | Outpatient (REF) | payer MEDICARE, BC, SELFPAY | LOC: LAB 19:04 | PROVIDERS: Visit Provider Urology | DX: N30.20 Other chronic cystitis without hematuria (principal); N95.2 Postmenopausal atrophic vaginitis | CPT/HCPCS: 87086; 87088; 87186 ==

== ENCOUNTER → 2018-05-03 15:51 | Outpatient (CLI) | payer MEDICARE, BC, SELFPAY ==
--- NOTE | 2018-05-03 16:00 | MM_ITS ---
MM Dig screening mamm BI w/CAD CAD Screening COMPARISON: Digital mammograms with CAD 09/10/2016 and spot compression views right breast 10/05/2016 and 6 month follow-up spot compression views right breast 04/11/2017 INDICATION: There is a history of breast cancer in patient's sister diagnosed before menopause. TECHNIQUE: Standard CC and MLO images were obtained. R2 CAD reviewed. FINDINGS: Moderate fibroglandular densities are seen in the central portions of both breast. Again noted are multiple too numerous to count micro and macro calcifications in each breast. There are stable clusters of microcalcifications right breast which have been followed with 6 month interval mammograms. Again there is no definite pleomorphism or suspicious cluster of microcalcifications in either breast. There is a biopsy clip left breast. IMPRESSION: Moderate breast density with multiple benign-appearing micro and macrocalcifications and no definite suspicious lesion seen BI-RADS Category: 2 Benign Finding(s) RECOMMENDED FOLLOW-UP: 1YR - 1 YEAR FOLLOW-UP (A letter has been sent to the patient regarding results of the study.)
== END ==
PROVIDERS: PCP Family Medicine; Visit Provider Family Medicine
DX: Z12.31 Encounter for screening mammogram for malignant neoplasm of breast (principal)
CPT/HCPCS: 77067

== ENCOUNTER 2019-06-10 21:46 | Inpatient (IN) ==
--- NOTE | 2019-06-10 21:59 | Emergency Department Note ---
ED Disposition Clinical Impression: Septic shock, Dehydration, Hypernatremia Acute renal failure Qualifiers: Acute renal failure type: unspecified Qualified Code(s): N17.9 - Acute kidney failure, unspecified Disposition: Admitted As Inpatient Condition on Discharge: Critical - Critical Care Critical Care Time: Yes Attestation: On 06/10/19, the high probability of a clinically significant, sudden or life threatening deterioration of the following system(s) required my full and direct attention, intervention and personal management. The time I documented below is in addition to time spent performing reported procedures but includes the following listed in this critical care notation. Vital system(s) involved:: Circulatory Failure, Metabolic Failure, Shock (Septic) My critical care processes included: Assessment & monitoring of V/S, Initial and Re-exams, Data Review/Interpretation, Coordinating Care, Medication Orders and management, Documentation Medical Decision Making - Raheem Inquiry Pt receiving controlled substance: No Vital Signs: 06/10/19 21:46 06/10/19 22:16 06/10/19 22:30 Temperature 104.9 F H Temperature Source Rectal Pulse Rate Pulse Rate [Left] 109 H 103 H 99 H Respiratory Rate 24 24 24 Blood Pressure Blood Pressure [Right Arm] 58/22 L 49/35 L 57/30 L Blood Pressure Mean [Right Arm] 34 39 39 Blood Pressure Source Blood Pressure Source [Right Arm] Automatic Cuff Automatic Cuff Automatic Cuff Blood Pressure Position Blood Pressure Position [Right Arm] Supine Supine Supine 02 Sat by Pulse Oximetry 51 L 84 L 86 L Oxygen Delivery Method Non-Rebreather Non-Rebreather Non-Rebreather Oxygen Flow Rate (LPM) 15 15 15 06/10/19 22:45 06/10/19 23:00 06/10/19 23:21 Temperature 99.6 F 99.6 F Temperature Source Rectal Oral Pulse Rate 74 Pulse Rate [Left] 98 H 92 H Respiratory Rate 22 22 21 Blood Pressure 103/68 L Blood Pressure [Right Arm] 95/55 L 110/71 Blood Pressure Mean [Right Arm] 68 84 Blood Pressure Source Automatic Cuff Blood Pressure Source [Right Arm] Automatic Cuff Automatic Cuff Blood Pressure Position Sitting Blood Pressure Position [Right Arm] Supine Supine 02 Sat by Pulse Oximetry 82 L 73 L Oxygen Delivery Method Non-Rebreather Non-Rebreather Non-Rebreather Oxygen Flow Rate (LPM) 15 15 15 - Lab Data Lab Results 06/10/19 21:50: Urine Color Yellow, Urine Appearance Clear, Urine pH 5.5, Ur Specific [place] >= 1.030, Urine Protein 2+, Urine Glucose (UA) Negative, Urine Ketones Negative, Urine Blood 2+, Urine Nitrate Negative, Urine Bilirubin Negative, Urine Urobilinogen 0.2, Ur Leukocyte Esterase Negative, Urine RBC 5- 10, Urine WBC 5-10, Ur Squamous Epith Cells 10-20, Urine Bacteria 2+ 06/10/19 21:50: WBC 19.3 H, RBC 6.25 H, Hgb 19.4 H*, Hct 61.1 H*, MCV 97.7, MCH 31.0, MCHC 31.7 L, RDW 13.3, Plt Count 232, MPV 11.7 H, Neut % (Auto) 77.4, Lymph % (Auto) 15.8, [place] % (Auto) 6.4, Eos % (Auto) 0.1, Baso % (Auto) 0.3, Neut # (Auto) 14.9 H, Lymph # (Auto) 3.1, [place] # (Auto) 1.2 H, Eos # (Auto) 0.0, Baso # (Auto) 0.1, Total Counted 100, Neutrophils % (Manual) 81 H, Band Neutrophils % 5.0, Lymphocytes % (Manual) 13, Monocytes % (Manual) 1 L, Platelet Estimate Normal, RBC Morphology Normal 06/10/19 21:50: Sodium 164 H*, Potassium 3.5, Chloride 112 H, Carbon Dioxide 32 H, Anion Gap 23.5 H, BUN 81 H, Creatinine 4.70 H, Estimated Creat Clear 11, Estimated GFR 9 L*, Est GFR ( Amer) 11 L*, Glucose 179 H, Calcium 11.1 H, Total Bilirubin 1.2, Direct Bilirubin 0.4, Conjugated Bilirubin 0.0, Indirect B ilirubin 0.8, Unconjugated Bilirubin 0.8, AST 157 H, ALT 112 H, Alkaline Phosphatase 75, Total Protein 8.2, Albumin 4.9 06/10/19 21:50: Lactate 9.2 H 06/10/19 21:50: Influenza Type A Ag Negative, Influenza Type B Ag Negative 06/10/19 21:50: Troponin I 0.23 H, TSH 1.95 06/10/19 22:07: VBG pH 7.24 L, VBG pCO2 60.3 H, VBG pO2 21.5 L, VBG HCO3 25.0, VBG Total CO2 26.9, VBG O2 Saturation 23.8 L, VBG Base Excess -2.4 Result diagrams: 06/10/19 21:50 06/10/19 21:50 Orders (Tests/Meds): ED MEDICATIONS Generic Name Dose Route Start Last Admin Trade Name Kervin PRN Reason Stop Dose Admin Acetaminophen 650 mg 06/10/19 23:03 Acetaminophen 650mg Suppository RC 07/10/19 23:02 Q4HP PRN Fever > 100.4 Aspirin 81 mg 06/11/19 09:00 Aspirin 81mg Enteric Coated Tablet PO 07/11/19 08:59 DAILY LEI Sodium Chloride 1,000 mls @ 200 mls/hr 06/10/19 23:03 06/10/19 23:36 Sod Chlor 0.9% 1000ml Bag IV 07/10/19 22:44 200 mls/hr .Q5H LEI Administration Meropenem 1 gm/ Sodium 100 mls @ 100 mls/hr 06/11/19 07:00 Chloride IV 06/24/19 22:59 Q8H LEI Protocol Vancomycin HCl 1,500 mg/ 250 mls @ 125 mls/hr 06/11/19 23:00 Sodium Chloride IV 06/24/19 22:59 Q24H LEI Levothyroxine Sodium 75 mcg 06/11/19 09:00 Synthroid 75mcg (0.075mg) Tablet PO 07/11/19 08:59 DAILY LEI Ondansetron HCl 4 mg 06/11/19 01:33 Zofran 4mg/2ml Vial IV 07/11/19 01:32 Q8HP PRN Nausea Discontinued Medications Generic Name Dose Route Start Last Admin Trade Name Kervin PRN Reason Stop Dose Admin Acetaminophen 650 mg 06/10/19 22:22 06/10/19 22:00 Acetaminophen 650mg Suppository RC 06/10/19 22:23 650 mg ONCE ONE Administration Sodium Chloride 2,310 mls @ 1,155 mls/hr 06/10/19 22:13 06/10/19 22:14 Sod Chlor 0.9% 1000ml Bag 30 ml/kg infuse over 2 hr (2310 ml) 06/11/19 00:12 1,155 mls/hr IV Administration .Q2H ONE Sodium Chloride 1,000 mls @ 999 mls/hr 06/10/19 22:30 06/10/19 23:22 Sod Chlor 0.9% 1000ml Bag IV 06/10/19 23:30 Not Given .Q1H1M LEI Sodium Chloride 1,000 mls @ 200 mls/hr 06/10/19 22:45 06/10/19 23:13 Sod Chlor 0.9% 1000ml Bag IV 07/10/19 22:44 200 mls/hr .Q5H LEI Administration Meropenem 1 gm/ Sodium 100 mls @ 100 mls/hr 06/10/19 23:00 06/10/19 23:21 Chloride IV 06/24/19 22:59 100 mls/hr Q8H LEI Administration Protocol Vancomycin HCl 1,500 mg/ 250 mls @ 125 mls/hr 06/10/19 23:00 06/10/19 23:37 Sodium Chloride IV 06/24/19 22:59 125 mls/hr Q24H LEI Administration ORDERS Category Date Time Status XR chest portable Stat Exams 06/10/19 21:56 Taken Basic Metabolic Panel AMLAB Lab 06/11/19 06:00 Ordered Complete Blood Count Auto Diff AMLAB Lab 06/11/19 06:00 Ordered Blood Culture Stat Micro 06/10/19 21:50 Received Urine Culture Stat Micro 06/10/19 21:50 Received - Radiology Data #1 Image(s): Chest Image Reviewed: Yes I reviewed the patient's radiology image Preliminary Findings: Normal/NAD - ECG Data Tracing #1 EKG interpreted by aJiro Cheung MD: Rhythm: sinus tachycardia Rate: 126 [place]: normal Ectopy: none Significant baseline artifact and wander admits interpretation - Physician Consults Physician Consulted: Evita Time: 22:43 Reason -: Admission Comment/Response: Agrees to admit the patient to the hospital. We discussed the patient's clinical information, including history, exam, laboratory and radiology results and ED course. Per hospital procedure, I will write temporary bridge inpatient orders on the patient. Specific orders requested by the admitting physician: Meropenem and vancomycin, dosed by pharmacy. Normal saline at 200 cc/h. - Tissue Perfus/Sepsis Re-Eval Sepsis Re-Evaluation Performed: Yes Date Performed: 06/10/19 Time Performed: 22:42 (Still mottled, hypotensive, poor capillary refill) Medical Decision Narrative: Family has made patient "DO NOT RESUSCITATE". No pressors. IV fluids and antibiotics are okay. Oxygen is okay. General Adult HPI - General Chief complaint: Altered Mental Status Stated complaint: LOC changes Time Seen by Provider: 06/10/19 21:50 Mode of Arrival: EMS Limitations: No Limitations Description of Symptoms (Recalled from ER Triage Doc. by RN): pt came in via EMS for UTI for the past 2 weeks. pt has dementia and has been declining over the past 5 days. pt is alert to painful stimuli but not oriented. pt son stated that she was ambulating 5 days ago with a cane. pt is currently having body twitches. unable to get a clear reading on pulse ox and BP cuff - History of Present Illness HPI narrative: Patient unable to provide any history. History was relayed to nurse by family. Patient currently being treated for UTI for the past 10 days but has been declining for 5 days. She has been on Levaquin. Twitching today. Arrives mottled, hypotensive, febrile, involuntary muscle movements likely due to rigors. Patient has dementia. Family gives advanced directive, DO NOT INTUBATE. No cough reported. - Related Data Home Medications Medication Instructions Recorded Confirmed Citalopram Hydrobromide [Celexa] 40 mg PO DAILY 06/06/17 06/10/19 Donepezil HCl [Aricept 10mg 10 mg PO HS 06/06/17 06/10/19 tablet] Gabapentin [Neurontin 300mg 100 mg PO HS 06/06/17 06/10/19 capsule] Levothyroxine Sodium 75 mcg PO DAILY 06/06/17 06/10/19 [Levothyroxine 75mcg (0.075mg) Tab] Multivitamin [Multivitamins] 1 tab PO DAILY 06/06/17 06/10/19 Oxybutynin Chloride [Ditropan Xl] 10 mg PO DAILY 06/06/17 06/11/19 Pantoprazole Sodium [Protonix 40mg 40 mg PO BID 06/06/17 06/10/19 tablet] Simvastatin 40 mg PO HS 06/06/17 06/10/19 hydroCHLOROthiazide [HCTZ 25mg 25 mg PO DAILY 06/06/17 06/10/19 tab] Aspirin [Aspir 81] 81 mg PO DAILY 06/10/19 06/10/19 Calcium Carbonate [Calcium] 600 mg PO DAILY 06/10/19 06/10/19 levoFLOXacin [Levaquin 500mg 500 mg PO DAILY 06/10/19 06/10/19 tab] Allergies Allergy/AdvReac Type Severity Reaction Status Date / Time brompheniramine Allergy Unknown Verified 01/03/18 09:09 [From DRIXORAL] cephalexin [CEPHALEXIN] Allergy Unknown Verified 06/10/19 21:48 Cephalosporins Allergy Unknown Verified 06/10/19 21:48 [CEPHALOSPORINS] dexbrompheniramine Allergy Unknown Verified 06/10/19 21:48 [From DRIXORAL] ibuprofen [IBUPROFEN] Allergy Unknown Verified 06/10/19 21:48 nitrofurantoin Allergy Unknown Verified 06/10/19 21:48 [NITROFURANTOIN] Penicillins [PENICILLINS] Allergy Unknown Verified 06/10/19 21:48 pseudoephedrine Allergy Unknown Verified 06/10/19 21:48 [From DRIXORAL] Sulfa (Sulfonamide Allergy Unknown Verified 06/10/19 21:48 Antibiotics) [SULFA (SULFONAMIDE ANTIBIOTICS)] [facility] History - Hepatitis A Screen Drug use history?: No High risk sexual behaviors?: No History of sexually transmitted infection?: No Currently employed?: No Childcare worker?: No Do you have indoor plumbing?: Yes Do you have electricity?: Yes Attestation statement:: This patient has been screened for Hepatitis A risk factors. I have reviewed the patient's past medical history: Yes Medical History: Reports:: Anxiety, Atherosclerotic Heart Disease, Coronary Artery Disease, Deep Vein Thrombosis, Hypertension, Myocardial Infarction Denies:: Cancer, Diabetes Mellitus Type 1, Diabetes Mellitus Type 2, MRSA Other Medical History: Reports: Arthritis, Hypothyroidism Other Surgeries: Yes: Hysterectomy-Total, Other Amputation: No Fractures: No Comment: Other surgeries: Kidney stone extraction 1973; D&C 1980; stent placement 1998; patellar fracture 2005; thyroid nodule removed for 2007 leg ulcers 2008: Cataract surgery - Social History Smoking Status: Former smoker Tobacco Type: cigarettes # Packs/Day (cigarettes): 1 #Yrs smoked (if former smoker): 30 Alcohol Intake: never Substance Use Type: denies use Occupational Status: disabled Housing: house Household Members: spouse - Psychiatric History Pschychiatric History:: Reports:: Anxiety Comment: Dementia Family Hx:: Cancer, Coronary Artery Disease, Diabetes, Hyperlipidemia ROS Obtained: Yes unobtainable due to mental status, Yes unobtainable due to mental condition Physical Exam - General General appearance: other Comment: Awake, eyes open, not verbally responsive. Skin is mottled, but warm. Capillary refill is poor. Unable to palpate peripheral pulses. Shaking, twitching, rigors. Not coughing. - Head Head exam: atraumatic, normocephalic - Eye Eye exam: Present: normal appearance, EOMI - ENT ENT exam: Present: mucous membranes moist - Neck Neck exam: Present: normal inspection, trachea midline - Chest Chest inspection: Present: normal inspection - Respiratory Respiratory exam: Absent: accessory muscle use - Cardiovascular Cardiovascular exam: Present: tachycardia, other (Peripheral pulses not palpable) - Abdominal Exam Abdominal exam: Present: soft - Extremities Exam Extremities exam: Present: other (Mottled) - Neurological Exam Neurological exam: Absent: oriented X3 - Skin Skin exam: Present: warm, mottled
[2019-06-10 22:04] LABS: Microscopic, Urine URINE MICROSCOPIC (MICROSCOPIC)
[2019-06-10 22:08] LABS: Basophils # 0.1 K/mm3 (0-0.2); Basophils % 0.3 % (0.1-2.0); Eosinophils % 0.1 % (0.1-12.0); Monocytes % 6.4 % (1.7-9.3); Red Cell Distribution Width 13.3 % (11.5-17.5)
[2019-06-10 22:08] LABS: VBG Base Excess -2.4 mmol/L (-2.4-2.3); VBG Oxygen Saturation 23.8 % (50-70); VBG PH 7.24 mmol/L (7.31-7.41); VBG PO2 21.5 mmol/L (28-40); VBG Total CO2 26.9 mmol/L (23-27)
[2019-06-10 22:09] LABS: VBG PCO2 60.3 mmol/L (35-51)
[2019-06-10 22:16] LABS: Lymphocytes # 3.1 K/mm3 (0.7-4.5); Lymphocytes % 15.8 % (10-50); Mean Corpuscular HGB Conc 31.7 g/dL (31.8-35.4); Mean Corpuscular Volume 97.7 fl (81-99); Mean Platelet Volume 11.7 fl (7.4-10.4); Monocytes # 1.2 K/mm3 (0.1-1.0); Neutrophils # 14.9 K/mm3 (1.8-7.8); Neutrophils % 77.4 % (37.0-80.0); Platelet Count 232 K/mm3 (142-424); Red Blood Count 6.25 M/mm3 (4.20-5.40); White Blood Count 19.3 K/mm3 (4.8-10.8)
[2019-06-10 22:23] LABS: Hemoglobin 19.4 g/dL (12.2-16.2)
[2019-06-10 22:24] LABS: Hematocrit 61.1 % (37.0-47.0)
[2019-06-10 22:25] LABS: Albumin Level 4.9 g/dl (3.5-5.0); Anion Gap 23.5 mEq/L (5-15); Bilirubin,Direct 0.4 mg/dl (0.0-0.4); Bilirubin,Indirect 0.8 mg/dL (0.0-0.9); Bilirubin,Total 1.2 mg/dl (0.2-1.3); Bilirubin,Unconjugated 0.8 mg/dL (0.0-1.1); Calcium 11.1 mg/dl (8.4-10.2); Total Protein,Serum 8.2 g/dl (6.3-8.2)
[2019-06-10 22:28] LABS: Appearance,Urine CLEAR (Clear); Blood, Urine 2+ (Negative); Color,Urine YELLOW (Yellow); Glucose,Urine (UA) Negative (Negative); Ketones,Urine Negative (Negative); Leukocyte Esterase,Urine Negative (Negative); PH,Urine 5.5 (5.0-8.5); Protein,Urine 2+ (Negative); Specific Gravity, Urine >= 1.030 (1.005-1.030); Urobilinogen,Urine 0.2 EU/dl (0.2)
[2019-06-10 22:31] LABS: Bilirubin,Urine Negative (Negative)
[2019-06-10 22:36] LABS: Bacteria,Urine 2+ /lpf
[2019-06-10 22:38] LABS: Lymphocytes % 13 % (10-50); Monocytes % 1 % (2-9); Neutrophils % 81 % (42-76); Total Cells Counted 100
[2019-06-10 22:39] LABS: RBC Morphology Normal
[2019-06-10 22:59] LABS: Thyroid Stimulating Hormone 1.95 uIU/mL (0.465-4.68)
[2019-06-11 06:08] LABS: Basophils % 0.1 % (0.1-2.0); Eosinophils % 0.1 % (0.1-12.0); Hematocrit 44.3 % (37.0-47.0); Hemoglobin 14.3 g/dL (12.2-16.2); Lymphocytes # 1.1 K/mm3 (0.7-4.5); Lymphocytes % 7.6 % (10-50); Mean Corpuscular HGB Conc 32.4 g/dL (31.8-35.4); Mean Corpuscular Volume 94.1 fl (81-99); Mean Platelet Volume 11.6 fl (7.4-10.4); Monocytes # 0.9 K/mm3 (0.1-1.0); Monocytes % 6.2 % (1.7-9.3); Neutrophils # 12.3 K/mm3 (1.8-7.8); Neutrophils % 85.9 % (37.0-80.0); Platelet Count 87 K/mm3 (142-424); Red Cell Distribution Width 13.6 % (11.5-17.5); White Blood Count 14.3 K/mm3 (4.8-10.8)
[2019-06-11 07:20] LABS: Calcium 8.4 mg/dl (8.4-10.2)
--- NOTE | 2019-06-11 07:24 | Pharmacy Consult Notes ---
[facility] Pharmacy VTE Monitoring - Patient Demographics Admission date: 06/10/19 Report Date: 06/11/19 Time: 07:24 Allergies/Adverse Reactions: Patient Allergies brompheniramine [From DRIXORAL] Allergy (Unknown, Verified 01/03/18 09:09) cephalexin [CEPHALEXIN] Allergy (Unknown, Verified 06/10/19 21:48) Cephalosporins [CEPHALOSPORINS] Allergy (Unknown, Verified 06/10/19 21:48) dexbrompheniramine [From DRIXORAL] Allergy (Unknown, Verified 06/10/19 21:48) ibuprofen [IBUPROFEN] Allergy (Unknown, Verified 06/10/19 21:48) nitrofurantoin [NITROFURANTOIN] Allergy (Unknown, Verified 06/10/19 21:48) Penicillins [PENICILLINS] Allergy (Unknown, Verified 06/10/19 21:48) pseudoephedrine [From DRIXORAL] Allergy (Unknown, Verified 06/10/19 21:48) Sulfa (Sulfonamide Antibiotics) [SULFA (SULFONAMIDE ANTIBIOTICS)] Allergy (Unknown, Verified 06/10/19 21:48) Height: 1.7 m Weight: 63.73 kg Patient Problems: Current Active Problems Septic shock (Acute) Acute renal failure (Acute) Dehydration (Acute) Hypernatremia (Acute) - VTE Risk Labs: VTE Related Lab Results Hgb 14.3 g/dL (12.2-16.2) D 06/11/19 05:48 Hct 44.3 % (37.0-47.0) 06/11/19 05:48 Plt Count 87 K/mm3 (142-424) L D 06/11/19 05:48 BUN 78 mg/dl (7-17) H 06/11/19 05:48 Creatinine 2.80 mg/dl (0.52-1.04) H D 06/11/19 05:48 Estimated Creat Clear 11 mL/min (50-200) 06/10/19 21:50 Was VTE Risk Assessment Performed: Yes VTE Score: 4 VTE Risk Level: Low Risk - Prophylaxis VTE Prophylaxis Ordered?: Yes Types of VTE Prophylaxis: TEDS Knee High Location of Applied Device: Bilateral Lower Extremeties - VTE Diagnosis Confirmed Treatment or plan recommended: Continue Current Treatment
--- NOTE | 2019-06-11 09:08 | History & Physical Report ---
*Admission Date: 06/10/19 <Angelica Barron - 06/11/19 09:31> *Chief complaint: Fever, UTI, dehydration <Angelica Barron - 06/11/19 09:31> *History of present illness: Ms. Zuniga is an 83-year-old female with a history of ASCVD, anxiety disorder, recurrent DVT, hypothyroidism, TIA, and dementia who was brought to [facility] emergency room for evaluation after not responding to medication for UTI, fever and general deterioration. Son describes patient is not doing well for the last 5 days. They were able to get her up to go to the bathroom but she has not been out of bed for the last 2 days. They were able to get her to take some medicines yesterday. She has not been eating and drinking. Her urine has been foul-smelling. She was evaluated in the home 06/08/2019 by [facility] nurse. At that time she had a low-grade fever. She was restarted on antibiotic for what was felt like another urinary tract infection. Additional equipment i.e. hospital bed were ordered. She did deteriorate further throughout the weekend. She was also noted by the family to be twitching. weekend. With evaluation in the emergency room she was found to have a temperature of 104.9. She was noted to be mottled with involuntary muscle movements. She was noted to be a DO NOT INTUBATE patient. She was hypotensive with a blood pressure of 58/22. White blood cell count was 19,300 With a hemoglobin of 19.4 and hematocrit of 61.1. Sodium was high at 164 with a BUN of 81 and creatinine 4.7; AST elevated at 157 and ALT at 112; Troponin I was 0.23; Lactate acid was 9.2. She was given Tylenol and aspirin and started on IV fluids at 200 an hour. She was also started on meropenem and vancomycin. She also was given a fluid bolus. With evaluation this a.m. patient was noted to continue with involuntary muscle movement. She also was mumbling. She seems to be able to focus on her son when he speaks. The son did stay with her all night and states she had a restless sleep. He feels that she appears better this a.m. <Angelica Barron - 06/11/19 09:31> [facility] History Medical History: Reports:: Anxiety, Atherosclerotic Heart Disease, Coronary Artery Disease, Deep Vein Thrombosis, Dementia, Depression, Hypertension, Myocardial Infarction, Transient Ischemic Attacks (TIA) Denies:: Cancer, Diabetes Mellitus Type 1, Diabetes Mellitus Type 2, MRSA <Angelica Barron 06/11/19 09:31> *Have you ever received a pneumonia vaccine?: Yes <Angelica Barron 06/11/19 09:31> *Have you received a flu vaccine this season?: Yes <Angelica Barron 06/11/19 09:31> Other Medical History: Reports: Arthritis, Hypothyroidism, Thyroid Disease <Angelica Barron 06/11/19 09:31> Laterality Cases: Right: Total Knee Replacement, Bilateral: Cataract <Angelica Barron 06/11/19 09:31> Other Surgeries: Yes: Colonoscopy (2014), Hysterectomy-Total, Other <Angelica Barron 06/11/19 09:31> Amputation: No <Angelica Barron 06/11/19 09:31> Fractures: No <Angelica Barron 06/11/19 09:31> Comment: Kidney stone extraction 1973; thyroid nodule removed 10/26/2006; laser surgery for leg ulcers 2007 <Angelica Barron 06/11/19 09:31> - *Social History Educational Level: Completed GED/General Educational Development <Angelica Barron 06/11/19 09:31> Smoking Status: Former smoker <Angelica Barron 06/11/19 09:31> Tobacco Type: cigarettes <Angelica Barron 06/11/19 09:31> # Packs/Day (cigarettes): 1 <Angelica Barron 06/11/19 09:31> #Yrs smoked (if former smoker): 30 <Angelica Barron 06/11/19 09:31> Alcohol Intake: never <Angelica Barron 06/11/19 09:31> Substance Use Type: denies use <Angelica Barron 06/11/19 09:31> *Occupational Status:: other <Angelica Barron 06/11/19 09:31> Housing: house <Angelica Barron 06/11/19 09:31> Household Members: spouse <Angelica Barron 06/11/19 09:31> *Travel in the last 8 weeks: None <Angelica Barron 06/11/19 09:31> - Psychiatric History Pschychiatric History:: Reports:: Anxiety <Angelica Barron 06/11/19 09:31> Family Hx:: Cancer <Angelica Barron 06/11/19 09:31> Comment: Heart disease <Angelica Barron 06/11/19 09:31> Review of Systems - Constitutional Reports fever(s), Reports weakness <Angelica Barron 06/11/19 09:31> - *Cardiovascular Denies chest pain <Angelica Barron 06/11/19 09:31> - *Respiratory Denies cough, Denies shortness of breath <Angelica Barron 06/11/19 09:31> - *Gastrointestinal Reports abdominal pain, Reports constipation, Denies vomiting <Angelica Barron 06/11/19 09:31> - *Genitourinary Reports difficulty urinating, Reports painful urination <Angelica Barron 06/11/19 09:31> - *Musculoskeletal Comments: Has not been out of bed for the past 2 days <Angelica Barron 06/11/19 09:31> - *Neurologic Reports abnormal movements, Reports abnormal speech (Mumbles), Reports confusion, Denies seizure-like activity <Angelica Barron 06/11/19 09:31> Meds Home Medications Medication Instructions Recorded Confirmed Type Citalopram Hydrobromide [Celexa] 40 mg PO DAILY 06/06/17 06/11/19 History Donepezil HCl [Aricept 10mg 10 mg PO HS 06/06/17 06/11/19 History tablet] Levothyroxine Sodium 75 mcg PO DAILY 06/06/17 06/11/19 History [Levothyroxine 75mcg (0.075mg) Tab] Multivitamin [Multivitamins] 1 tab PO DAILY 06/06/17 06/11/19 History Oxybutynin Chloride [Ditropan Xl] 10 mg PO DAILY 06/06/17 06/11/19 History Pantoprazole Sodium [Protonix 40mg 40 mg PO BID 06/06/17 06/11/19 History tablet] Simvastatin 40 mg PO HS 06/06/17 06/11/19 History hydroCHLOROthiazide [HCTZ 25mg 25 mg PO DAILY 06/06/17 06/11/19 History tab] Aspirin [Aspir 81] 81 mg PO DAILY 06/10/19 06/11/19 History Calcium Carbonate [Calcium] 600 mg PO DAILY 06/10/19 06/11/19 History levoFLOXacin [Levaquin 500mg 500 mg PO DAILY 06/10/19 06/11/19 History tab] Acetaminophen [Tylenol elixir 325 mg PO Q4HP PRN 06/11/19 06/11/19 History 325mg/10.15mL UDC] Gabapentin [Gabapentin 100mg Cap] 100 mg PO HS 06/11/19 06/11/19 History <Ayaan Veronica - 06/11/19 11:06> Allergies Allergy/AdvReac Type Severity Reaction Status Date / Time brompheniramine Allergy Unknown Verified 01/03/18 09:09 [From DRIXORAL] cephalexin [CEPHALEXIN] Allergy Unknown Verified 06/10/19 21:48 Cephalosporins Allergy Unknown Verified 06/10/19 21:48 [CEPHALOSPORINS] dexbrompheniramine Allergy Unknown Verified 06/10/19 21:48 [From DRIXORAL] ibuprofen [IBUPROFEN] Allergy Unknown Verified 06/10/19 21:48 nitrofurantoin Allergy Unknown Verified 06/10/19 21:48 [NITROFURANTOIN] Penicillins [PENICILLINS] Allergy Unknown Verified 06/10/19 21:48 pseudoephedrine Allergy Unknown Verified 06/10/19 21:48 [From DRIXORAL] Sulfa (Sulfonamide Allergy Unknown Verified 06/10/19 21:48 Antibiotics) [SULFA (SULFONAMIDE ANTIBIOTICS)] <Ayaan Veronica - 06/11/19 11:06> Exam Vital signs and Labs for Last 24 Hours: Temp Pulse Resp BP Pulse Ox 100.0 F H 84 28 H 138/59 L 95 06/11/19 07:21 06/11/19 07:21 06/11/19 07:21 06/11/19 07:21 06/11/19 07:21 Laboratory Results - last 24 hr 06/10/19 21:50: Urine Color Yellow, Urine Appearance Clear, Urine pH 5.5, Ur Specific [place] >= 1.030, Urine Protein 2+, Urine Glucose (UA) Negative, Urine Ketones Negative, Urine Blood 2+, Urine Nitrate Negative, Urine Bilirubin N egative, Urine Urobilinogen 0.2, Ur Leukocyte Esterase Negative, Urine RBC 5-10, Urine WBC 5-10, Ur Squamous Epith Cells 10-20, Urine Bacteria 2+ 06/10/19 21:50: WBC 19.3 H, RBC 6.25 H, Hgb 19.4 H*, Hct 61.1 H*, MCV 97.7, MCH 31.0, MCHC 31.7 L, RDW 13.3, Plt Count 232, MPV 11.7 H, Neut % (Auto) 77.4, Lymph % (Auto) 15.8, [place] % (Auto) 6.4, Eos % (Auto) 0.1, Baso % (Auto) 0.3, Neut # (Auto) 14.9 H, Lymph # (Auto) 3.1, [place] # (Auto) 1.2 H, Eos # (Auto) 0.0, Baso # (Auto) 0.1, Total Counted 100, Neutrophils % (Manual) 81 H, Band Neutrophils % 5.0, Lymphocytes % (Manual) 13, Monocytes % (Manual) 1 L, Platelet Estimate Normal, RBC Morphology Normal 06/10/19 21:50: Sodium 164 H*, Potassium 3.5, Chloride 112 H, Carbon Dioxide 32 H, Anion Gap 23.5 H, BUN 81 H, Creatinine 4.70 H, Estimated Creat Clear 11, Estimated GFR 9 L*, Est GFR ( Amer) 11 L*, Glucose 179 H, Calcium 11.1 H, Total Bilirubin 1.2, Direct Bilirubin 0.4, Conjugated Bilirubin 0.0, Indirect Bilirubin 0.8, Unconjugated Bilirubin 0.8, AST 157 H, ALT 112 H, Alkaline Phosphatase 75, Total Protein 8.2, Albumin 4.9 06/10/19 21:50: Lactate 9.2 H 06/10/19 21:50: Influenza Type A Ag Negative, Influenza Type B Ag Negative 06/10/19 21:50: Troponin I 0.23 H, TSH 1.95 06/10/19 22:07: VBG pH 7.24 L, VBG pCO2 60.3 H, VBG pO2 21.5 L, VBG HCO3 25.0, VBG Total CO2 26.9, VBG O2 Saturation 23.8 L, VBG Base Excess -2.4 06/11/19 02:20: Lactate 1.5 06/11/19 05:48: WBC 14.3 H D, RBC 4.70, Hgb 14.3 D, Hct 44.3, MCV 94.1, MCH 30.5, MCHC 32.4, RDW 13.6, Plt Count 87 L D, MPV 11.6 H, Neut % (Auto) 85.9 H, Lymph % (Auto) 7.6 L, [place] % (Auto) 6.2, Eos % (Auto) 0.1, Baso % (Auto) 0.1, Neut # (Auto) 12.3 H, Lymph # (Auto) 1.1, [place] # (Auto) 0.9, Eos # (Auto) 0.0, Baso # (Auto) 0.0 06/11/19 05:48: Sodium 158 H*, Potassium 3.0 L, Chloride 122 H, Carbon Dioxide 30, Anion Gap 9.0, BUN 78 H, Creatinine 2.80 H D, Estimated Creat Clear 16, Estimated GFR 16 L*, Est GFR ( Amer) 20 L D, Glucose 118 H D, Calcium 8.4 D <JeremíasAyaan Peyman - 06/11/19 11:06> Temp Pulse Resp BP Pulse Ox 100.0 F H 84 28 H 138/59 L 95 06/11/19 07:21 06/11/19 07:21 06/11/19 07:21 06/11/19 07:21 06/11/19 07:21 Laboratory Results - last 24 hr 06/10/19 21:50: Urine Color Yellow, Urine Appearance Clear, Urine pH 5.5, Ur Specific [place] >= 1.030, Urine Protein 2+, Urine Glucose (UA) Negative, Urine Ketones Negative, Urine Blood 2+, Urine Nitrate Negative, Urine Bilirubin Negative, Urine Urobilinogen 0.2, Ur Leukocyte Esterase Negative, Urine RBC 5- 10, Urine WBC 5-10, Ur Squamous Epith Cells 10-20, Urine Bacteria 2+ 06/10/19 21:50: WBC 19.3 H, RBC 6.25 H, Hgb 19.4 H*, Hct 61.1 H*, MCV 97.7, MCH 31.0, MCHC 31.7 L, RDW 13.3, Plt Count 232, MPV 11.7 H, Neut % (Auto) 77.4, Lymph % (Auto) 15.8, [place] % (Auto) 6.4, Eos % (Auto) 0.1, Baso % (Auto) 0.3, Neut # (Auto) 14.9 H, Lymph # (Auto) 3.1, [place] # (Auto) 1.2 H, Eos # (Auto) 0.0, Baso # (Auto) 0.1, Total Counted 100, Neutrophils % (Manual) 81 H, Band Neutrophils % 5.0, Lymphocytes % (Manual) 13, Monocytes % (Manual) 1 L, Platelet Estimate Normal, RBC Morphology Normal 06/10/19 21:50: Sodium 164 H*, Potassium 3.5, Chloride 112 H, Carbon Dioxide 32 H, Anion Gap 23.5 H, BUN 81 H, Creatinine 4.70 H, Estimated Creat Clear 11, Estimated GFR 9 L*, Est GFR ( Amer) 11 L*, Glucose 179 H, Calcium 11.1 H, Total Bilirubin 1.2, Direct Bilirubin 0.4, Conjugated Bilirubin 0.0, Indirect Bilirubin 0.8, Unconjugated Bilirubin 0.8, AST 157 H, ALT 112 H, Alkaline Phosphatase 75, Total Protein 8.2, Albumin 4.9 06/10/19 21:50: Lactate 9.2 H 06/10/19 21:50: Influenza Type A Ag Negative, Influenza Type B Ag Negative 06/10/19 21:50: Troponin I 0.23 H, TSH 1.95 06/10/19 22:07: VBG pH 7.24 L, VBG pCO2 60.3 H, VBG pO2 21.5 L, VBG HCO3 25.0, VBG Total CO2 26.9, VBG O2 Saturation 23.8 L, VBG Base Excess -2.4 06/11/19 02:20: Lactate 1.5 06/11/19 05:48: WBC 14.3 H D, RBC 4.70, Hgb 14.3 D, Hct 44.3, MCV 94.1, MCH 30.5, MCHC 32.4, RDW 13.6, Plt Count 87 L D, MPV 11.6 H, Neut % (Auto) 85.9 H, Lymph % (Auto) 7.6 L, [place] % (Auto) 6.2, Eos % (Auto) 0.1, Baso % (Auto) 0.1, Neut # (Auto) 12.3 H, Lymph # (Auto) 1.1, [place] # (Auto) 0.9, Eos # (Auto) 0.0, Baso # (Auto) 0.0 06/11/19 05:48: Sodium 158 H*, Potassium 3.0 L, Chloride 122 H, Carbon Dioxide 30, Anion Gap 9.0, BUN 78 H, Creatinine 2.80 H D, Estimated Creat Clear 16, Estimated GFR 16 L*, Est GFR ( Amer) 20 L D, Glucose 118 H D, Calcium 8.4 D <Angelica Barron - 06/11/19 09:31> I & O for Last 24 hours: Intake & Output 06/08/19 06/09/19 06/10/19 06/11/19 11:59 11:59 11:59 11:59 Intake Total 1032 / 1032 Output Total 350 / 350 Balance 682 / 682 Weight 140 lb 8 oz <Ayaan Veronica - 06/11/19 11:06> Intake & Output 06/08/19 06/09/19 06/10/19 06/11/19 11:59 11:59 11:59 11:59 Intake Total 1032 / 1032 Output Total 350 / 350 Balance 682 / 682 Weight 140 lb 8 oz <Angelica Barron - 06/11/19 09:31> Radiology Reports for the Last 24 Hours: 06/10/2019 chest x-ray IMPRESSION: Nonspecific opacity left lung base which could be due to scarring, atelectasis, or patchy infiltrate. Upright PA and lateral chest may provide further evaluation the the <Angelica Barron - 06/11/19 09:31> - Constitutional no acute distress, thin <Angelica Barron - 06/11/19 09:31> - *Routine HEENT Exam Head: Present: normocephalic, atraumatic <Angelica Barron - 06/11/19 09:31> Eye: Present: PERRL. Absent: conjunctival icterus, scleral injection <Angelica Barron 06/11/19 09:31> ENT: Present: mucous membranes dry <Angelica Barron 06/11/19 09:31> - *Routine Neck Exam Absent: carotid bruit, lymphadenopathy, thyromegaly, tenderness <Angelica Barron 06/11/19 09:31> - *Routine Respiratory Exam Present: CTA bilaterally [facility] 09:31> - *Routine Cardiovascular Exam Present: RRR [facility] 09:31> - *Routine Abdominal Exam Present: soft, normoactive bowel sounds, tenderness. Absent: distended [facility] 09:31> - *Routine Extremities Exam Absent: edema, calf tenderness <Katharine Barronhy 06/11/19 09:31> - *Routine Neurological Exam Present: altered mental status, moving all extremities (Mumbles and does not speak words) [facility]11/19 09:31> Assessment and Plan (1) Septic shock Current visit: Yes Status: Acute Category: Medical Code(s): A41.9 - Sepsis, unspecified organism; R65.21 - Severe sepsis with septic shock (2) Acute renal failure Current visit: Yes Status: Acute Qualifiers: Acute renal failure type: unspecified Qualified Code(s): N17.9 - Acute kidney failure, unspecified Category: Medical Code(s): N17.9 - Acute kidney failure, unspecified (3) Anxiety Current visit: Yes Status: Chronic Category: Medical Code(s): F41.9 - Anxiety disorder, unspecified (4) Dementia Current visit: Yes Status: Chronic Category: Medical Code(s): F03.90 - Unspecified dementia without behavioral disturbance (5) Dehydration Current visit: Yes Status: Acute Category: Medical Code(s): E86.0 - Dehydration (6) Hypernatremia Current visit: Yes Status: Acute Category: Medical Code(s): E87.0 - Hyperosmolality and hypernatremia (7) Elevated troponin Current visit: Yes Status: Acute Category: Medical Code(s): R79.89 - Other specified abnormal findings of blood chemistry (8) DNR (do not resuscitate) Current visit: Yes Status: Acute Category: Medical Code(s): Z66 - Do not resuscitate <Ayaan Veronica - 06/11/19 11:06> (1) Anxiety Current visit: Yes Status: Chronic Category: Medical Code(s): F41.9 - Anxiety disorder, unspecified (2) Dementia Current visit: Yes Status: Chronic Category: Medical Code(s): F03.90 - Unspecified dementia without behavioral disturbance (3) Acute renal failure Current visit: Yes Status: Acute Qualifiers: Acute renal failure type: unspecified Qualified Code(s): N17.9 - Acute kidney failure, unspecified Category: Medical Code(s): N17.9 - Acute kidney failure, unspecified (4) Dehydration Current visit: Yes Status: Acute Category: Medical Code(s): E86.0 - Dehydration (5) Hypernatremia Current visit: Yes Status: Acute Category: Medical Code(s): E87.0 - Hyperosmolality and hypernatremia (6) Septic shock Current visit: Yes Status: Acute Category: Medical Code(s): A41.9 - Sepsis, unspecified organism; R65.21 - Severe sepsis with septic shock <Angelica Barron - 06/11/19 09:04> - Assessment and plan all Dx Assessment and Plan for all problems:: Patient seen and examined. SHe is more agitated this AM. Seems to be tender in right abdomen. Continue IV hydration and antibiotics pending cultures. Repeat Troponin. IV Ativan for anxiety. Serial abdominal exams; may need further imaging. Confirmed DNR status with her son. <Ayaan Veronica - 06/11/19 11:06> Patient has improved with IV fluids With improvement of sodium down to 158. Renal function has also improved with a BUN of 78 and creatinine of 2.8. Repeat lactic acid was 1.5. TSH was noted to be 1.95. We will continue with IV fluids, antibiotics, pending culture results. We will add Ativan IV for agitation/anxiety. <Angelica Barron - 06/11/19 09:31>
--- NOTE | 2019-06-11 10:07 | Pharmacy Consult Notes ---
- Pharmacy Consult Date: 06/11/19 Time: 10:03 Referring provider: DR. MAHER Reason for Consult:: VANCOMYCIN DOSING Allergies and ADEs:: Allergies Allergy/AdvReac Type Severity Reaction Status Date / Time brompheniramine Allergy Unknown Verified 01/03/18 09:09 [From DRIXORAL] cephalexin [CEPHALEXIN] Allergy Unknown Verified 06/10/19 21:48 Cephalosporins Allergy Unknown Verified 06/10/19 21:48 [CEPHALOSPORINS] dexbrompheniramine Allergy Unknown Verified 06/10/19 21:48 [From DRIXORAL] ibuprofen [IBUPROFEN] Allergy Unknown Verified 06/10/19 21:48 nitrofurantoin Allergy Unknown Verified 06/10/19 21:48 [NITROFURANTOIN] Penicillins [PENICILLINS] Allergy Unknown Verified 06/10/19 21:48 pseudoephedrine Allergy Unknown Verified 06/10/19 21:48 [From DRIXORAL] Sulfa (Sulfonamide Allergy Unknown Verified 06/10/19 21:48 Antibiotics) [SULFA (SULFONAMIDE ANTIBIOTICS)] Home Medications:: Home Medications Medication Instructions Recorded Confirmed Type Citalopram Hydrobromide [Celexa] 40 mg PO DAILY 06/06/17 06/11/19 History Donepezil HCl [Aricept 10mg 10 mg PO HS 06/06/17 06/11/19 History tablet] Levothyroxine Sodium 75 mcg PO DAILY 06/06/17 06/11/19 History [Levothyroxine 75mcg (0.075mg) Tab] Multivitamin [Multivitamins] 1 tab PO DAILY 06/06/17 06/11/19 History Oxybutynin Chloride [Ditropan Xl] 10 mg PO DAILY 06/06/17 06/11/19 History Pantoprazole Sodium [Protonix 40mg 40 mg PO BID 06/06/17 06/11/19 History tablet] Simvastatin 40 mg PO HS 06/06/17 06/11/19 History hydroCHLOROthiazide [HCTZ 25mg 25 mg PO DAILY 06/06/17 06/11/19 History tab] Aspirin [Aspir 81] 81 mg PO DAILY 06/10/19 06/11/19 History Calcium Carbonate [Calcium] 600 mg PO DAILY 06/10/19 06/11/19 History levoFLOXacin [Levaquin 500mg 500 mg PO DAILY 06/10/19 06/11/19 History tab] Acetaminophen [Tylenol elixir 325 mg PO Q4HP PRN 06/11/19 06/11/19 History 325mg/10.15mL UDC] Gabapentin [Gabapentin 100mg Cap] 100 mg PO HS 06/11/19 06/11/19 History Height: 1.7 m Weight: 63.73 kg Laboratory Results:: Laboratory Results - last 24 hr 06/10/19 21:50: Urine Color Yellow, Urine Appearance Clear, Urine pH 5.5, Ur Specific [place] >= 1.030, Urine Protein 2+, Urine Glucose (UA) Negative, Urine Ketones Negative, Urine Blood 2+, Urine Nitrate Negative, Urine Bilirubin Negative, Urine Urobilinogen 0.2, Ur Leukocyte Esterase Negative, Urine RBC 5- 10, Urine WBC 5-10, Ur Squamous Epith Cells 10-20, Urine Bacteria 2+ 06/10/19 21:50: WBC 19.3 H, RBC 6.25 H, Hgb 19.4 H*, Hct 61.1 H*, MCV 97.7, MCH 31.0, MCHC 31.7 L, RDW 13.3, Plt Count 232, MPV 11.7 H, Neut % (Auto) 77.4, Lymph % (Auto) 15.8, [place] % (Auto) 6.4, Eos % (Auto) 0.1, Baso % (Auto) 0.3, Neut # (Auto) 14.9 H, Lymph # (Auto) 3.1, [place] # (Auto) 1.2 H, Eos # (Auto) 0.0, Baso # (Auto) 0.1, Total Counted 100, Neutrophils % (Manual) 81 H, Band Neutrophils % 5.0, Lymphocytes % (Manual) 13, Monocytes % (Manual) 1 L, Platelet Estimate Normal, RBC Morphology Normal 06/10/19 21:50: Sodium 164 H*, Potassium 3.5, Chloride 112 H, Carbon Dioxide 32 H, Anion Gap 23.5 H, BUN 81 H, Creatinine 4.70 H, Estimated Creat Clear 11, Estimated GFR 9 L*, Est GFR ( Amer) 11 L*, Glucose 179 H, Calcium 11.1 H, Total Bilirubin 1.2, Direct Bilirubin 0.4, Conjugated Bilirubin 0.0, Indirect Bilirubin 0.8, Unconjugated Bilirubin 0.8, AST 157 H, ALT 112 H, Alkaline Phosphatase 75, Total Protein 8.2, Albumin 4.9 06/10/19 21:50: Lactate 9.2 H 06/10/19 21:50: Influenza Type A Ag Negative, Influenza Type B Ag Negative 06/10/19 21:50: Troponin I 0.23 H, TSH 1.95 06/10/19 22:07: VBG pH 7.24 L, VBG pCO2 60.3 H, VBG pO2 21.5 L, VBG HCO3 25.0, VBG Total CO2 26.9, VBG O2 Saturation 23.8 L, VBG Base Excess -2.4 06/11/19 02:20: Lactate 1.5 06/11/19 05:48: WBC 14.3 H D, RBC 4.70, Hgb 14.3 D, Hct 44.3, MCV 94.1, MCH 30.5, MCHC 32.4, RDW 13.6, Plt Count 87 L D, MPV 11.6 H, Neut % (Auto) 85.9 H, Lymph % (Auto) 7.6 L, [place] % (Auto) 6.2, Eos % (Auto) 0.1, Baso % (Auto) 0.1, Neut # (Auto) 12.3 H, Lymph # (Auto) 1.1, [place] # (Auto) 0.9, Eos # (Auto) 0.0, Baso # (Auto) 0.0 06/11/19 05:48: Sodium 158 H*, Potassium 3.0 L, Chloride 122 H, Carbon Dioxide 30, Anion Gap 9.0, BUN 78 H, Creatinine 2.80 H D, Estimated Creat Clear 16, Estimated GFR 16 L*, Est GFR ( Amer) 20 L D, Glucose 118 H D, Calcium 8.4 D Medical History: Reports:: Anxiety, Atherosclerotic Heart Disease, Coronary Artery Disease, Deep Vein Thrombosis, Dementia, Depression, Hypertension, Myocardial Infarction, Transient Ischemic Attacks (TIA) Denies:: Cancer, Diabetes Mellitus Type 1, Diabetes Mellitus Type 2, MRSA Assessment and Plan (1) Anxiety Current visit: Yes Status: Chronic Category: Medical Code(s): F41.9 - Anxiety disorder, unspecified (2) Dementia Current visit: Yes Status: Chronic Category: Medical Code(s): F03.90 - Unspecified dementia without behavioral disturbance (3) Acute renal failure Current visit: Yes Status: Acute Qualifiers: Acute renal failure type: unspecified Qualified Code(s): N17.9 - Acute kidney failure, unspecified Category: Medical Code(s): N17.9 - Acute kidney failure, unspecified (4) Dehydration Current visit: Yes Status: Acute Category: Medical Code(s): E86.0 - Dehydration (5) Hypernatremia Current visit: Yes Status: Acute Category: Medical Code(s): E87.0 - Hyperosmolality and hypernatremia (6) Septic shock Current visit: Yes Status: Acute Category: Medical Code(s): A41.9 - Sepsis, unspecified organism; R65.21 - Severe sepsis with septic shock - Assessment and plan all Dx Assessment and Plan for all problems:: PATIENT RECEIVED VANCOMYCIN 1500 MG X1 DOSE IN ER OVERNIGHT. RECOMMEND AT THIS TIME TO GIVE VANCOMYCIN 1000 MG Q48H WITH NEXT DOSE 06/12/19 AT 2200.
[2019-06-12 06:43] LABS: Eosinophils % 0.4 % (0.1-12.0); Hematocrit 40.9 % (37.0-47.0); Lymphocytes # 0.9 K/mm3 (0.7-4.5); Lymphocytes % 9.8 % (10-50); Mean Corpuscular HGB Conc 31.8 g/dL (31.8-35.4); Mean Corpuscular Volume 97.7 fl (81-99); Mean Platelet Volume 11.7 fl (7.4-10.4); Monocytes # 0.5 K/mm3 (0.1-1.0); Neutrophils % 84.8 % (37.0-80.0); Platelet Count 74 K/mm3 (142-424); Red Blood Count 4.18 M/mm3 (4.20-5.40); Red Cell Distribution Width 13.7 % (11.5-17.5); White Blood Count 9.4 K/mm3 (4.8-10.8)
[2019-06-12 08:08] LABS: Anion Gap 9.1 mEq/L (5-15); Bilirubin,Total 0.6 mg/dl (0.2-1.3)
[2019-06-12 08:09] LABS: Albumin Level 2.8 g/dl (3.5-5.0); Albumin/Globulin Ratio 1.3 (1.1-1.8); Globulin 2.1 g/dL (1.3-3.2); Total Protein,Serum 4.9 g/dl (6.3-8.2)
--- NOTE | 2019-06-12 08:24 | Progress Note ---
<Angelica Barron - Last Filed: 06/12/19 08:20> Internal Medicine - PN: Subj *Date: 06/12/19 *Time: 08:20 Interval history: Per nursing: Patient has had periodic restlessness. She was easily calmed. Blood sugars have been low with this a.m.'s at 73.Laboratory data this morning shows a white blood cell count has normalized with a hemoglobin of 13 hematocrit of 40.9. Blood chemistries are pending. Patient is verbal but does not answer questions appropriately. Exam Vital signs and Labs for Last 24 Hours: Temp Pulse Resp BP Pulse Ox 98.5 F 91 H 20 118/52 L 97 06/12/19 08:00 06/12/19 08:00 06/12/19 08:00 06/12/19 08:00 06/12/19 08:00 Laboratory Results - last 24 hr 06/11/19 05:48: Troponin I 0.15 H 06/12/19 05:38: POC Glucose 73 06/12/19 05:40: WBC 9.4 D, RBC 4.18 L, Hgb 13.0, Hct 40.9, MCV 97.7, MCH 31.1, MCHC 31.8, RDW 13.7, Plt Count 74 L, MPV 11.7 H, Neut % (Auto) 84.8 H, Lymph % (Auto) 9.8 L, [place] % (Auto) 5.0, Eos % (Auto) 0.4, Baso % (Auto) 0.0 L, Neut # (Auto) 8.0 H, Lymph # (Auto) 0.9, [place] # (Auto) 0.5, Eos # (Auto) 0.0, Baso # (Auto) 0.0 I & O for Last 24 hours: Intake & Output 06/09/19 06/10/19 06/11/19 06/12/19 11:59 11:59 11:59 11:59 Intake Total 1032 / 1032 1368 / 1368 Output Total 350 / 350 1750 / 1750 Balance 682 / 682 -382 / -382 Weight 140 lb 8 oz 150 lb 5 oz Microbiology Reports for the Last 24 Hours: Microbiology 06/10/19 21:50 Urine,Catheterized Urine Culture - Preliminary - Constitutional no acute distress Comments: More alert this morning. States she is sorry. Easily calmed. - *Routine Respiratory Exam Comments: Few bibasilar crackles. - *Routine Cardiovascular Exam Present: RRR - *Routine Abdominal Exam Present: soft, normoactive bowel sounds, tenderness (Grimaces with palpation to different areas of the abdomen.). Absent: distended Comments: Flynn catheter to bedside drainage - *Routine Extremities Exam Absent: edema, calf tenderness - *Routine Neurological Exam Present: alert Less mumbling. Placed nonpurposeful movement of extremities Assessment and Plan (1) Septic shock Current visit: Yes Status: Acute Category: Medical Code(s): A41.9 - Sepsis, unspecified organism; R65.21 - Severe sepsis with septic shock (2) Acute renal failure Current visit: Yes Status: Acute Qualifiers: Acute renal failure type: unspecified Qualified Code(s): N17.9 - Acute kidney failure, unspecified Category: Medical Code(s): N17.9 - Acute kidney failure, unspecified (3) Anxiety Current visit: Yes Status: Chronic Category: Medical Code(s): F41.9 - Anxiety disorder, unspecified (4) Dementia Current visit: Yes Status: Chronic Category: Medical Code(s): F03.90 - Unspecified dementia without behavioral disturbance (5) Dehydration Current visit: Yes Status: Acute Category: Medical Code(s): E86.0 - Dehydration (6) Hypernatremia Current visit: Yes Status: Acute Category: Medical Code(s): E87.0 - Hyperosmolality and hypernatremia (7) Elevated troponin Current visit: Yes Status: Acute Category: Medical Code(s): R79.89 - Other specified abnormal findings of blood chemistry (8) DNR (do not resuscitate) Current visit: Yes Status: Acute Category: Medical Code(s): Z66 - Do not resuscitate - Assessment and plan all Dx Assessment and Plan for all problems:: Patient with great improvement. Low blood sugars IV fluids changed to D5 W at 150-hour pending electrolyte results. We will add full liquid diet. Will repeat chest x-ray this a.m. <Ayaan Veronica - Last Filed: 06/12/19 10:55> Internal Medicine - PN: Subj *Date: 06/12/19 *Time: 08:53 Exam Vital signs and Labs for Last 24 Hours: Temp Pulse Resp BP Pulse Ox 98.5 F 91 H 20 118/52 L 97 06/12/19 08:00 06/12/19 08:00 06/12/19 08:00 06/12/19 08:00 06/12/19 08:00 Laboratory Results - last 24 hr 06/11/19 05:48: Troponin I 0.15 H 06/12/19 05:38: POC Glucose 73 06/12/19 05:40: WBC 9.4 D, RBC 4.18 L, Hgb 13.0, Hct 40.9, MCV 97.7, MCH 31.1, MCHC 31.8, RDW 13.7, Plt Count 74 L, MPV 11.7 H, Neut % (Auto) 84.8 H, Lymph % (Auto) 9.8 L, [place] % (Auto) 5.0, Eos % (Auto) 0.4, Baso % (Auto) 0.0 L, Neut # (Auto) 8.0 H, Lymph # (Auto) 0.9, [place] # (Auto) 0.5, Eos # (Auto) 0.0, Baso # (Auto) 0.0 06/12/19 07:45: Sodium 162 H*, Potassium 3.1 L, Chloride 128 H, Carbon Dioxide 28, Anion Gap 9.1, BUN 54 H D, Creatinine 1.50 H D, Estimated Creat Clear 31, Estimated GFR 33 L, Est GFR ( Amer) 40 L D, Glucose 74, Calcium 8.0 L, Total Bilirubin 0.6, AST 94 H D, ALT 64 D, Alkaline Phosphatase 54, Total Protein 4.9 L D, Albumin 2.8 L D, Globulin 2.1, Albumin/Globulin Ratio 1.3 I & O for Last 24 hours: Intake & Output 06/09/19 06/10/19 06/11/19 06/12/19 11:59 11:59 11:59 11:59 Intake Total 1032 / 1032 1368 / 1368 Output Total 350 / 350 1750 / 1750 Balance 682 / 682 -382 / -382 Weight 140 lb 8 oz 150 lb 5 oz Microbiology Reports for the Last 24 Hours: Microbiology 06/10/19 21:50 Urine,Catheterized Urine Culture - Preliminary Assessment and Plan (1) Septic shock Current visit: Yes Status: Acute Category: Medical Code(s): A41.9 - Sepsis, unspecified organism; R65.21 - Severe sepsis with septic shock (2) Acute renal failure Current visit: Yes Status: Acute Qualifiers: Acute renal failure type: unspecified Qualified Code(s): N17.9 - Acute kidney failure, unspecified Category: Medical Code(s): N17.9 - Acute kidney failure, unspecified (3) Anxiety Current visit: Yes Status: Chronic Category: Medical Code(s): F41.9 - Anxiety disorder, unspecified (4) Dementia Current visit: Yes Status: Chronic Category: Medical Code(s): F03.90 - Unspecified dementia without behavioral disturbance (5) Dehydration Current visit: Yes Status: Acute Category: Medical Code(s): E86.0 - Dehydration (6) Hypernatremia Current visit: Yes Status: Acute Category: Medical Code(s): E87.0 - Hyper osmolality and hypernatremia (7) Elevated troponin Current visit: Yes Status: Acute Category: Medical Code(s): R79.89 - Other specified abnormal findings of blood chemistry (8) DNR (do not resuscitate) Current visit: Yes Status: Acute Category: Medical Code(s): Z66 - Do not resuscitate - Assessment and plan all Dx Assessment and Plan for all problems:: Patient seen and examined. Concur with above. Spoke with son at length last night and family is interested in exploring LTC placement options.
[2019-06-13 06:39] LABS: Basophils % 0.1 % (0.1-2.0); Eosinophils # 0.1 K/mm3 (0.0-0.4); Eosinophils % 0.7 % (0.1-12.0); Hematocrit 41.7 % (37.0-47.0); Hemoglobin 13.7 g/dL (12.2-16.2); Lymphocytes # 0.8 K/mm3 (0.7-4.5); Lymphocytes % 9.5 % (10-50); Mean Corpuscular HGB Conc 32.8 g/dL (31.8-35.4); Mean Corpuscular Volume 95.5 fl (81-99); Mean Platelet Volume 11.2 fl (7.4-10.4); Monocytes # 0.4 K/mm3 (0.1-1.0); Neutrophils # 7.3 K/mm3 (1.8-7.8); Neutrophils % 84.7 % (37.0-80.0); Platelet Count 81 K/mm3 (142-424); Red Blood Count 4.36 M/mm3 (4.20-5.40); Red Cell Distribution Width 13.6 % (11.5-17.5); White Blood Count 8.6 K/mm3 (4.8-10.8)
[2019-06-13 06:48] LABS: Albumin Level 2.7 g/dl (3.5-5.0); Albumin/Globulin Ratio 1.2 (1.1-1.8); Anion Gap 3.7 mEq/L (5-15); Bilirubin,Total 0.8 mg/dl (0.2-1.3); Globulin 2.2 g/dL (1.3-3.2); Total Protein,Serum 4.9 g/dl (6.3-8.2)
[2019-06-13 06:49] LABS: Calcium 7.9 mg/dl (8.4-10.2)
--- NOTE | 2019-06-13 08:15 | Progress Note ---
<Angelica Barron - Last Filed: 06/13/19 08:12> Internal Medicine - PN: Subj *Date: 06/13/19 *Time: 08:12 Interval history: Nursing reports that she had a quiet night last night. She has not had anything to eat or drink. She is nonverbal this morning and mostly moans when awakened. MAR indicates that patient did take her p.o. medicines yesterday. Laboratory data today reveals an improved sodium of 154. Potassium has decreased to 2.7. Renal function has greatly improved with a BUN of 36 and creatinine 0.9. CBC shows a normal white blood cell count with a hemoglobin of 13.7 and hematocrit of 41.7 Exam Vital signs and Labs for Last 24 Hours: Temp Pulse Resp BP Pulse Ox 98.0 F 60 18 146/78 H 95 06/13/19 07:59 06/13/19 07:59 06/13/19 07:59 06/13/19 07:59 06/13/19 07:59 Laboratory Results - last 24 hr 06/12/19 07:45: Sodium 162 H*, Potassium 3.1 L, Chloride 128 H, Carbon Dioxide 28, Anion Gap 9.1, BUN 54 H D, Creatinine 1.50 H D, Estimated Creat Clear 31, Estimated GFR 33 L, Est GFR ( Amer) 40 L D, Glucose 74, Calcium 8.0 L, Total Bilirubin 0.6, AST 94 H D, ALT 64 D, Alkaline Phosphatase 54, Total Protein 4.9 L D, Albumin 2.8 L D, Globulin 2.1, Albumin/Globulin Ratio 1.3 06/12/19 07:45: Vancomycin Trough 8.1 06/12/19 20:35: Stl Aeromonas (PCR) Not detected, Stl C. cayetanensis PCR Not detected, Stool Rotavirus (PCR) Not detected, Stl Adenov F 40/41 PCR Not detected, Stool Astrovirus (PCR) Not detected, Stool Campylobacter PCR Not detected, Stl C.difficile Tox PCR Not detected, Stool Cryptosporidium PCR Not detected, Stl E.coli Shiga Tox PCR Not detected, Stool E coli O157 PCR Not detected, Stl Enterotoxigenic E PCR Not detected, Stool EPEC (PCR) Not detected, Stool EAEC (PCR) Not detected, Stl E. histolytica PCR Not detected, Stool Giardia Lamblia PCR Not detected, Stool Salmonella PCR Not detected, Stool Sapovirus (PCR) Not detected, Stl P. shigelloides PCR Not detected, Stl Shigella/EIEC PCR Not detected, St Y.enterocolitica PCR Not detected, Stool Vibrio (PCR) Not detected, Stl Vibrio cholerae PCR Not detected, Stl Norovirus GI/GII PCR Not detected 06/13/19 06:22: WBC 8.6, RBC 4.36, Hgb 13.7, Hct 41.7, MCV 95.5, MCH 31.3 H, MCHC 32.8, RDW 13.6, Plt Count 81 L, MPV 11.2 H, Neut % (Auto) 84.7 H, Lymph % (Auto) 9.5 L, [place] % (Auto) 5.0, Eos % (Auto) 0.7, Baso % (Auto) 0.1, Neut # (Auto) 7.3, Lymph # (Auto) 0.8, [place] # (Auto) 0.4, Eos # (Auto) 0.1, Baso # (Auto) 0.0 06/13/19 06:22: Sodium 154 H*, Potassium 2.7 L*, Chloride 120 H, Carbon Dioxide 33 H, Anion Gap 3.7 L, BUN 36 H D, Creatinine 0.90 D, Estimated Creat Clear 45, Estimated GFR 60, Est GFR ( Amer) 73 D, Glucose 124 H D, Calcium 7.9 L, Total Bilirubin 0.8, AST 91 H, ALT 64, Alkaline Phosphatase 66, Total Protein 4.9 L, Albumin 2.7 L, Globulin 2.2, Albumin/Globulin Ratio 1.2 I & O for Last 24 hours: Intake & Output 06/10/19 06/11/19 06/12/19 06/13/19 11:59 11:59 11:59 11:59 Intake Total 1032 / 1032 1368 / 1368 4230 / 4230 Output Total 350 / 350 1750 / 1750 1999 Balance 682 / 682 -382 / -382 223 / 223 Weight 140 lb 8 oz 150 lb 5 oz 145 lb 8 oz Microbiology Reports for the Last 24 Hours: Microbiology 06/10/19 21:50 Urine,Catheterized Urine Culture - Preliminary 06/10/19 21:50 Blood Blood Culture - Preliminary NO GROWTH AFTER 48 HOURS 06/10/19 21:50 Blood Blood Culture - Preliminary NO GROWTH AFTER 48 HOURS - Constitutional no acute distress Comments: Awakened during exam. She moans. She is nonverbal. - *Routine Respiratory Exam Present: CTA bilaterally - *Routine Cardiovascular Exam Present: RRR - *Routine Abdominal Exam Present: soft, normoactive bowel sounds. Absent: tenderness, distended Comments: Continues with Flynn catheter to bedside drainage with adequate urinary output - *Routine Extremities Exam Absent: edema - *Routine Neurological Exam Nonverbal. Responsive. Assessment and Plan (1) Septic shock Current visit: Yes Status: Acute Category: Medical Code(s): A41.9 - Sepsis, unspecified organism; R65.21 - Severe sepsis with septic shock (2) Acute renal failure Current visit: Yes Status: Acute Qualifiers: Acute renal failure type: unspecified Qualified Code(s): N17.9 - Acute kidney failure, unspecified Category: Medical Code(s): N17.9 - Acute kidney failure, unspecified (3) Anxiety Current visit: Yes Status: Chronic Category: Medical Code(s): F41.9 - Anxiety disorder, unspecified (4) Dementia Current visit: Yes Status: Chronic Category: Medical Code(s): F03.90 - Unspecified dementia without behavioral disturbance (5) Dehydration Current visit: Yes Status: Acute Category: Medical Code(s): E86.0 - Dehydration (6) Hypernatremia Current visit: Yes Status: Acute Category: Medical Code(s): E87.0 - Hyperosmolality and hypernatremia (7) Elevated troponin Current visit: Yes Status: Acute Category: Medical Code(s): R79.89 - Other specified abnormal findings of blood chemistry (8) DNR (do not resuscitate) Current visit: Yes Status: Acute Category: Medical Code(s): Z66 - Do not resuscitate (9) Hypokalemia Current visit: Yes Status: Acute Category: Medical Code(s): E87.6 - Hypokalemia - Assessment and plan all Dx Assessment and Plan for all problems:: Continue with current IV fluids. Will give additional boluses of potassium today. Care management has been consulted. Patient has a bed at [facility] when medically stable. <Ayaan Veronica - Last Filed: 06/13/19 09:07> Internal Medicine - PN: Subj *Date: 06/13/19 *Time: 09:06 Exam Vital signs and Labs for Last 24 Hours: Temp Pulse Resp BP Pulse Ox 98.0 F 60 18 146/78 H 95 06/13/19 07:59 06/13/19 07:59 06/13/19 07:59 06/13/19 07:59 06/13/19 07:59 Laboratory Results - last 24 hr 06/12/19 07:45: Sodium 162 H*, Potassium 3.1 L, Chloride 128 H, Carbon Dioxide 28, Anion Gap 9.1, BUN 54 H D, Creatinine 1.50 H D, Estimated Creat Clear 31, Estimated GFR 33 L, Est GFR ( Amer) 40 L D, Glucose 74, Calcium 8.0 L, Total Bilirubin 0.6, AST 94 H D, ALT 64 D, Alkaline Phosphatase 54, Total Protein 4.9 L D, Albumin 2.8 L D, Globulin 2.1, Albumin/Globulin Ratio 1.3 06/12/19 07:45: Vancomycin Trough 8.1 06/12/19 20:35: Stl Aeromonas (PCR) Not detected, Stl C. cayetanensis PCR Not detected, Stool Rotavirus (PCR) Not detected, Stl Adenov F 40/41 PCR Not detected, Stool Astrovirus (PCR) Not detected, Stool Campylobacter PCR Not detected, Stl C.difficile Tox PCR Not detected, Stool Cryptosporidium PCR Not detected, Stl E.coli Shiga Tox PCR Not detected, Stool E coli O157 PCR Not detected, Stl Enterotoxigenic E PCR Not detected, Stool EPEC (PCR) Not detected, Stool EAEC (PCR) Not detected, Stl E. histolytica PCR Not detected, Stool Giardia Lamblia PCR Not detected, Stool Salmonella PCR Not detected, Stool Sapovirus (PCR) Not detected, Stl P. shigelloides PCR Not detected, Stl Shigella/EIEC PCR Not detected, St Y.enterocolitica PCR Not detected, Stool Vibrio (PCR) Not detected, Stl Vibrio cholerae PCR Not detected, Stl Norovirus GI/GII PCR Not detected 06/13/19 06:22: WBC 8.6, RBC 4.36, Hgb 13.7, Hct 41.7, MCV 95.5, MCH 31.3 H, MCHC 32.8, RDW 13.6, Plt Count 81 L, MPV 11.2 H, Neut % (Auto) 84.7 H, Lymph % (Auto) 9.5 L, [place] % (Auto) 5.0, Eos % (Auto) 0.7, Baso % (Auto) 0.1, Neut # (Auto) 7.3, Lymph # (Auto) 0.8, [place] # (Auto) 0.4, Eos # (Auto) 0.1, Baso # (Auto) 0.0 06/13/19 06:22: Sodium 154 H*, Potassium 2.7 L*, Chloride 120 H, Carbon Dioxide 33 H, Anion Gap 3.7 L, BUN 36 H D, Creatinine 0.90 D, Estimated Creat Clear 45, Estimated GFR 60, Est GFR ( Amer) 73 D, Glucose 124 H D, Calcium 7.9 L, Total Bilirubin 0.8, AST 91 H, ALT 64, Alkaline Phosphatase 66, Total Protein 4.9 L, Albumin 2.7 L, Globulin 2.2, Albumin/Globulin Ratio 1.2 I & O for Last 24 hours: Intake & Output 06/10/19 06/11/19 06/12/19 06/13/19 11:59 11:59 11:59 11:59 Intake Total 1032 / 1032 1368 / 1368 4230 / 4230 Output Total 350 / 350 1750 / 1750 1999 Balance 682 / 682 -382 / -382 2230 / 2230 Weight 140 lb 8 oz 150 lb 5 oz 145 lb 8 oz Microbiology Reports for the Last 24 Hours: Microbiology 06/10/19 21:50 Urine,Catheterized Urine Culture - Preliminary 06/10/19 21:50 Blood Blood Culture - Preliminary NO GROWTH AFTER 48 HOURS 06/10/19 21:50 Blood Blood Culture - Preliminary NO GROWTH AFTER 48 HOURS Assessment and Plan (1) Pneumonia Current visit: Yes Status: Acute Category: Medical Code(s): J18.9 - Pneumonia, unspecified organism (2) Septic shock Current visit: Yes Status: Acute Category: Medical Code(s): A41.9 - Sepsis, unspecified organism; R65.21 - Severe sepsis with septic shock (3) Acute renal failure Current visit: Yes Status: Acute Qualifiers: Acute renal failure type: unspecified Qualified Code(s): N17.9 - Acute kidney failure, unspecified Category: Medical Code(s): N17.9 - Acute kidney failure, unspecified (4) Anxiety Current visit: Yes Status: Chronic Category: Medical Code(s): F41.9 - Anxiety disorder, unspecified (5) Dementia Current visit: Yes Status: Chronic Category: Medical Code(s): F03.90 - U nspecified dementia without behavioral disturbance (6) Dehydration Current visit: Yes Status: Acute Category: Medical Code(s): E86.0 - Dehydration (7) Hypernatremia Current visit: Yes Status: Acute Category: Medical Code(s): E87.0 - Hyperosmolality and hypernatremia (8) Elevated troponin Current visit: Yes Status: Acute Category: Medical Code(s): R79.89 - Other specified abnormal findings of blood chemistry (9) DNR (do not resuscitate) Current visit: Yes Status: Acute Category: Medical Code(s): Z66 - Do not resuscitate (10) Hypokalemia Current visit: Yes Status: Acute Category: Medical Code(s): E87.6 - Hypokalemia (11) Sacral decubitus ulcer Current visit: Yes Status: Acute Category: Medical Code(s): L89.159 - Pressure ulcer of sacral region, unspecified stage - Assessment and plan all Dx Assessment and Plan for all problems:: Patient seen and examined. She is calm this morning but is nonverbal. No po intake. Labs improving. Infiltrate on CXR improved. Cultures negative thus far. [facility] declined to accept patient. May have bed at [facility] if family agreeable.
--- NOTE | 2019-06-13 16:01 | Pharmacy Consult Notes ---
- Pharmacy Consult Date: 06/13/19 Time: 16:00 Referring provider: DR. MAHER Reason for Consult:: VANCOMYCIN TROUGH LEVEL Allergies and ADEs:: Allergies Allergy/AdvReac Type Severity Reaction Status Date / Time brompheniramine Allergy Unknown Verified 01/03/18 09:09 [From DRIXORAL] cephalexin [CEPHALEXIN] Allergy Unknown Verified 06/10/19 21:48 Cephalosporins Allergy Unknown Verified 06/10/19 21:48 [CEPHALOSPORINS] dexbrompheniramine Allergy Unknown Verified 06/10/19 21:48 [From DRIXORAL] ibuprofen [IBUPROFEN] Allergy Unknown Verified 06/10/19 21:48 nitrofurantoin Allergy Unknown Verified 06/10/19 21:48 [NITROFURANTOIN] Penicillins [PENICILLINS] Allergy Unknown Verified 06/10/19 21:48 pseudoephedrine Allergy Unknown Verified 06/10/19 21:48 [From DRIXORAL] Sulfa (Sulfonamide Allergy Unknown Verified 06/10/19 21:48 Antibiotics) [SULFA (SULFONAMIDE ANTIBIOTICS)] Home Medications:: Home Medications Medication Instructions Recorded Confirmed Type Citalopram Hydrobromide [Celexa] 40 mg PO DAILY 06/06/17 06/11/19 History Donepezil HCl [Aricept 10mg 10 mg PO HS 06/06/17 06/11/19 History tablet] Levothyroxine Sodium 75 mcg PO DAILY 06/06/17 06/11/19 History [Levothyroxine 75mcg (0.075mg) Tab] Multivitamin [Multivitamins] 1 tab PO DAILY 06/06/17 06/11/19 History Oxybutynin Chloride [Ditropan Xl] 10 mg PO DAILY 06/06/17 06/11/19 History Pantoprazole Sodium [Protonix 40mg 40 mg PO BID 06/06/17 06/11/19 History tablet] Simvastatin 40 mg PO HS 06/06/17 06/11/19 History hydroCHLOROthiazide [HCTZ 25mg 25 mg PO DAILY 06/06/17 06/11/19 History tab] Aspirin [Aspir 81] 81 mg PO DAILY 06/10/19 06/11/19 History Calcium Carbonate [Calcium] 600 mg PO DAILY 06/10/19 06/11/19 History levoFLOXacin [Levaquin 500mg 500 mg PO DAILY 06/10/19 06/11/19 History tab] Acetaminophen [Tylenol elixir 325 mg PO Q4HP PRN 06/11/19 06/11/19 History 325mg/10.15mL UDC] Gabapentin [Gabapentin 100mg Cap] 100 mg PO HS 06/11/19 06/11/19 History Height: 1.7 m Weight: 65.998 kg Laboratory Results:: Laboratory Results - last 24 hr 06/10/19 21:50: Urine Color Yellow, Urine Appearance Clear, Urine pH 5.5, Ur Specific [place] >= 1.030, Urine Protein 2+, Urine Glucose (UA) Negative, Urine Ketones Negative, Urine Blood 2+, Urine Nitrate Negative, Urine Bilirubin Negative, Urine Urobilinogen 0.2, Ur Leukocyte Esterase Negative, Urine RBC 5- 10, Urine WBC 5-10, Ur Squamous Epith Cells 10-20, Urine Bacteria 2+ 06/12/19 20:35: Stl Aeromonas (PCR) Not detected, Stl C. cayetanensis PCR Not detected, Stool Rotavirus (PCR) Not detected, Stl Adenov F 40/41 PCR Not detected, Stool Astrovirus (PCR) Not detected, Stool Campylobacter PCR Not detected, Stl C.difficile Tox PCR Not detected, Stool Cryptosporidium PCR Not detected, Stl E.coli Shiga Tox PCR Not detected, Stool E coli O157 PCR Not detected, Stl Enterotoxigenic E PCR Not detected, Stool EPEC (PCR) Not detected, Stool EAEC (PCR) Not detected, Stl E. histolytica PCR Not detected, Stool Giardia Lamblia PCR Not detected, Stool Salmonella PCR Not detected, Stool Sapovirus (PCR) Not detected, Stl P. shigelloides PCR Not detected, Stl Shigella/EIEC PCR Not detected, St Y.enterocolitica PCR Not detected, Stool Vibrio (PCR) Not detected, Stl Vibrio cholerae PCR Not detected, Stl Norovirus GI/GII PCR Not detected 06/13/19 06:22: WBC 8.6, RBC 4.36, Hgb 13.7, Hct 41.7, MCV 95.5, MCH 31.3 H, MCHC 32.8, RDW 13.6, Plt Count 81 L, MPV 11.2 H, Neut % (Auto) 84.7 H, Lymph % (Auto) 9.5 L, [place] % (Auto) 5.0, Eos % (Auto) 0.7, Baso % (Auto) 0.1, Neut # (Auto) 7.3, Lymph # (Auto) 0.8, [place] # (Auto) 0.4, Eos # (Auto) 0.1, Baso # (Auto) 0.0 06/13/19 06:22: Sodium 154 H*, Potassium 2.7 L*, Chloride 120 H, Carbon Dioxide 33 H, Anion Gap 3.7 L, BUN 36 H D, Creatinine 0.90 D, Estimated Creat Clear 45, Estimated GFR 60, Est GFR ( Amer) 73 D, Glucose 124 H D, Calcium 7.9 L, Total Bilirubin 0.8, AST 91 H, ALT 64, Alkaline Phosphatase 66, Total Protein 4.9 L, Albumin 2.7 L, Globulin 2.2, Albumin/Globulin Ratio 1.2 06/13/19 15:03: Vancomycin Trough 8.1 Medical History: Reports:: Anxiety, Atherosclerotic Heart Disease, Coronary Artery Disease, Deep Vein Thrombosis, Dementia, Depression, Hypertension, Myocardial Infarction, Transient Ischemic Attacks (TIA) Denies:: Cancer, Diabetes Mellitus Type 1, Diabetes Mellitus Type 2, MRSA Assessment and Plan (1) Pneumonia Current visit: Yes Status: Acute Category: Medical Code(s): J18.9 - Pneumonia, unspecified organism (2) Septic shock Current visit: Yes Status: Acute Category: Medical Code(s): A41.9 - Sepsis, unspecified organism; R65.21 - Severe sepsis with septic shock (3) Acute renal failure Current visit: Yes Status: Acute Qualifiers: Acute renal failure type: unspecified Qualified Code(s): N17.9 - Acute kidney failure, unspecified Category: Medical Code(s): N17.9 - Acute kidney failure, unspecified (4) Anxiety Current visit: Yes Status: Chronic Category: Medical Code(s): F41.9 - Anxiety disorder, unspecified (5) Dementia Current visit: Yes Status: Chronic Category: Medical Code(s): F03.90 - Unspecified dementia without behavioral disturbance (6) Dehydration Current visit: Yes Status: Acute Category: Medical Code(s): E86.0 - Dehydration (7) Hypernatremia Current visit: Yes Status: Acute Category: Medical Code(s): E87.0 - Hyperosmolality and hypernatremia (8) Elevated troponin Current visit: Yes Status: Acute Category: Medical Code(s): R79.89 - Other specified abnormal findings of blood chemistry (9) DNR (do not resuscitate) Current visit: Yes Status: Acute Category: Medical Code(s): Z66 - Do not resuscitate (10) Hypokalemia Current visit: Yes Status: Acute Category: Medical Code(s): E87.6 - Hypokalemia (11) Sacral decubitus ulcer Current visit: Yes Status: Acute Category: Medical Code(s): L89.159 - Pressure ulcer of sacral region, unspecified stage - Assessment and plan all Dx Assessment and Plan for all problems:: BASED ON PATIENT FACTORS AND VANCOMYCIN TROUGH LEVEL, RECOMMEND CHANGING DOSE TO VANCOMYCIN 1250 MG IV Q24H. PHARMACY WILL CONTINUE TO MONITOR DAILY AND ADJUST APPROPRIATE.
[2019-06-14 06:44] LABS: Basophils % 0.1 % (0.1-2.0); Eosinophils # 0.2 K/mm3 (0.0-0.4); Eosinophils % 3.2 % (0.1-12.0); Hematocrit 41.3 % (37.0-47.0); Hemoglobin 13.5 g/dL (12.2-16.2); Lymphocytes # 1.1 K/mm3 (0.7-4.5); Lymphocytes % 16.5 % (10-50); Mean Corpuscular HGB Conc 32.6 g/dL (31.8-35.4); Mean Corpuscular Volume 94.8 fl (81-99); Mean Platelet Volume 12.2 fl (7.4-10.4); Monocytes # 0.4 K/mm3 (0.1-1.0); Monocytes % 6.3 % (1.7-9.3); Neutrophils % 73.9 % (37.0-80.0); Platelet Count 55 K/mm3 (142-424); Red Blood Count 4.36 M/mm3 (4.20-5.40); Red Cell Distribution Width 13.5 % (11.5-17.5); White Blood Count 6.7 K/mm3 (4.8-10.8)
[2019-06-14 07:01] LABS: Anion Gap 2.9 mEq/L (5-15); Calcium 7.3 mg/dl (8.4-10.2)
--- NOTE | 2019-06-14 08:18 | Progress Note ---
<Berenice Roberto - Last Filed: 06/14/19 08:16> Internal Medicine - PN: Subj *Date: 06/14/19 *Time: 08:16 Interval history: Patient is feeling a little bit better today. She is able to wake up and answer some questions. She is still very lethargic. She denies any pain today and states she slept well throughout the night. She has not try to eat any breakfast yet this morning. Exam Vital signs and Labs for Last 24 Hours: Temp Pulse Resp BP Pulse Ox 97.9 F 95 H 18 134/48 L 97 06/14/19 07:50 06/14/19 07:50 06/14/19 07:50 06/14/19 07:50 06/14/19 07:50 Laboratory Results - last 24 hr 06/10/19 21:50: Urine Color Yellow, Urine Appearance Clear, Urine pH 5.5, Ur Specific [place] >= 1.030, Urine Protein 2+, Urine Glucose (UA) Negative, Urine Ketones Negative, Urine Blood 2+, Urine Nitrate Negative, Urine Bilirubin Negative, Urine Urobilinogen 0.2, Ur Leukocyte Esterase Negative, Urine RBC 5- 10, Urine WBC 5-10, Ur Squamous Epith Cells 10-20, Urine Bacteria 2+ 06/13/19 15:03: Vancomycin Trough 8.1 06/14/19 06:24: WBC 6.7, RBC 4.36, Hgb 13.5, Hct 41.3, MCV 94.8, MCH 30.9, MCHC 32.6, RDW 13.5, Plt Count 55 L D, MPV 12.2 H, Neut % (Auto) 73.9, Lymph % (Auto) 16.5, Avery % (Auto) 6.3, Eos % (Auto) 3.2, Baso % (Auto) 0.1, Neut # (Auto) 5.0, Lymph # (Auto) 1.1, Avery # (Auto) 0.4, Eos # (Auto) 0.2, Baso # (Auto) 0.0 06/14/19 06:24: Sodium 144, Potassium 2.9 L*, Chloride 111 H, Carbon Dioxide 33 H, Anion Gap 2.9 L, BUN 21 H D, Creatinine 0.70 D, Estimated Creat Clear 48, Estimated GFR 80, Est GFR ( Amer) 97 D, Glucose 101 H, Calcium 7.3 L I & O for Last 24 hours: Intake & Output 06/11/19 06/12/19 06/13/19 06/14/19 11:59 11:59 11:59 11:59 Intake Total 1032 / 1032 1368 / 1368 4330 / 4330 3916 / 3916 Output Total 350 / 350 1750 / 1750 1999 / 1999 1525 / 1525 Balance 682 / 682 -382 / -382 2330 / 2330 2391 / 2391 Weight 140 lb 8 oz 150 lb 5 oz 145 lb 8 oz 155 lb 7 oz Microbiology Reports for the Last 24 Hours: Microbiology 06/10/19 21:50 Urine,Catheterized Urine Culture - Preliminary Gram Positive Cocci - Constitutional no acute distress (lethargic) - *Routine Respiratory Exam Present: CTA bilaterally - *Routine Cardiovascular Exam Present: RRR - *Routine Abdominal Exam Present: soft, normoactive bowel sounds. Absent: tenderness - *Routine Extremities Exam Absent: cyanosis, clubbing, edema - *Routine Skin Exam Present: warm. Absent: rash - *Routine Neurological Exam more alert today, still very tired Assessment and Plan (1) Pneumonia Current visit: Yes Status: Acute Category: Medical Code(s): J18.9 - Pneumonia, unspecified organism (2) Septic shock Current visit: Yes Status: Acute Category: Medical Code(s): A41.9 - Sepsis, unspecified organism; R65.21 - Severe sepsis with septic shock (3) Acute renal failure Current visit: Yes Status: Acute Qualifiers: Acute renal failure type: unspecified Qualified Code(s): N17.9 - Acute kidney failure, unspecified Category: Medical Code(s): N17.9 - Acute kidney failure, unspecified (4) Anxiety Current visit: Yes Status: Chronic Category: Medical Code(s): F41.9 - Anxiety disorder, unspecified (5) Dementia Current visit: Yes Status: Chronic Category: Medical Code(s): F03.90 - Unspecified dementia without behavioral disturbance (6) Dehydration Current visit: Yes Status: Acute Category: Medical Code(s): E86.0 - Dehydration (7) Hypernatremia Current visit: Yes Status: Acute Category: Medical Code(s): E87.0 - Hyperosmolality and hypernatremia (8) Elevated troponin Current visit: Yes Status: Acute Category: Medical Code(s): R79.89 - Other specified abnormal findings of blood chemistry (9) DNR (do not resuscitate) Current visit: Yes Status: Acute Category: Medical Code(s): Z66 - Do not resuscitate (10) Hypokalemia Current visit: Yes Status: Acute Category: Medical Code(s): E87.6 - Hypokalemia (11) Sacral decubitus ulcer Current visit: Yes Status: Acute Category: Medical Code(s): L89.159 - Pressure ulcer of sacral region, unspecified stage - Assessment and plan all Dx Assessment and Plan for all problems:: We will give more runs of potassium today and try some p.o. potassium as patient is more alert. We will continue antibiotics. <Ayaan Veronica - Last Filed: 06/14/19 13:27> Internal Medicine - PN: Subj *Date: 06/14/19 *Time: 13:24 Exam Vital signs and Labs for Last 24 Hours: Temp Pulse Resp BP Pulse Ox 97.9 F 95 H 18 134/48 L 97 06/14/19 07:50 06/14/19 07:50 06/14/19 07:50 06/14/19 07:50 06/14/19 07:50 Laboratory Results - last 24 hr 06/13/19 15:03: Vancomycin Trough 8.1 06/14/19 06:24: WBC 6.7, RBC 4.36, Hgb 13.5, Hct 41.3, MCV 94.8, MCH 30.9, MCHC 32.6, RDW 13.5, Plt Count 55 L D, MPV 12.2 H, Neut % (Auto) 73.9, Lymph % (Auto) 16.5, Avery % (Auto) 6.3, Eos % (Auto) 3.2, Baso % (Auto) 0.1, Neut # (Auto) 5.0, Lymph # (Auto) 1.1, Avery # (Auto) 0.4, Eos # (Auto) 0.2, Baso # (Auto) 0.0 06/14/19 06:24: Sodium 144, Potassium 2.9 L*, Chloride 111 H, Carbon Dioxide 33 H, Anion Gap 2.9 L, BUN 21 H D, Creatinine 0.70 D, Estimated Creat Clear 48, Estimated GFR 80, Est GFR ( Amer) 97 D, Glucose 101 H, Calcium 7.3 L I & O for Last 24 hours: Intake & Output 06/12/19 06/13/19 06/14/19 06/15/19 11:59 11:59 11:59 11:59 Intake Total 1368 / 1368 4330 / 4330 4016 / 4016 60 60 Output Total 1750 / 1750 1999 1525 / 1525 Balance -382 / -382 2330 / 2330 2491 / 2491 60 / 60 Weight 150 lb 5 oz 145 lb 8 oz 155 lb 7 oz Microbiology Reports for the Last 24 Hours: Microbiology 06/10/19 21:50 Urine,Catheterized Urine Culture - Preliminary Gram Positive Cocci Assessment and Plan (1) Pneumonia Current visit: Yes Status: Acute Category: Medical Code(s): J18.9 - Pneumonia, unspecified organism (2) Septic shock Current visit: Yes Status: Acute Category: Medical Code(s): A41.9 - Sepsis, unspecified organism; R65.21 - Severe sepsis with septic shock (3) Acute renal failure Current visit: Yes Status: Acute Qualifiers: Acute renal failure type: unspecified Qualified Code(s): N17.9 - Acute kidney failure, unspecified Category: Medical Code(s): N17.9 - Acute kidney failure, unspecified (4) Anxiety Current visit: Yes Status: Chronic Category: Medical Code(s): F41.9 - Anxiety disorder, unspecified (5) Dementia Current visit: Yes Status: Chronic Category: Medical Code(s): F03.90 - Unspecified dementia without behavioral disturbance (6) Dehydration Current visit: Yes Status: Acute Category: Medical Code(s): E86.0 - Dehydration (7) Hypernatremia Current visit: Yes Status: Acute Category: Medical Code(s): E87.0 - Hyperosmolality and hypernatremia (8) Elevated troponin Current visit: Yes Status: Acute Category: Medical Code(s): R79.89 - Other specified abnormal findings of blood chemistry (9) DNR (do not resuscitate) Current visit: Yes Status: Acute Category: Medical Code(s): Z66 - Do not resuscitate (10) Hypokalemia Current visit: Yes Status: Acute Category: Medical Code(s): E87.6 - Hypokalemia (11) Sacral decubitus ulcer Current visit: Yes Status: Acute Category: Medical Code(s): L89.159 - Pressure ulcer of sacral region, unspecified stage - Assessment and plan all Dx Assessment and Plan for all problems:: Patient seen and examined this AM. She is much more calm and attempts to answer questions but is still confused. Taking some PO. Cultures are negative this far likely due to being on Levaquin as outpatient. Will continue to replace potassium. Decrease IVF. PT eval. Remove Flynn. Likely discharge to [place] tomorrow.
[2019-06-15 07:12] LABS: Anion Gap 3.2 mEq/L (5-15); Calcium 7.2 mg/dl (8.4-10.2)
--- NOTE | 2019-06-15 08:17 | Progress Note ---
<Berenice Roberto - Last Filed: 06/15/19 08:14> Internal Medicine - PN: Subj *Date: 06/15/19 *Time: 08:14 Interval history: Patient is much more awake and alert today. She denies any pain and states she slept well last night. She says she is hungry this morning and would like to sit up and eat. Exam Vital signs and Labs for Last 24 Hours: Temp Pulse Resp BP Pulse Ox 97.7 F 69 19 147/59 H 96 06/15/19 04:00 06/15/19 04:00 06/15/19 04:00 06/15/19 04:00 06/15/19 04:00 Laboratory Results - last 24 hr 06/15/19 06:20: Sodium 143, Potassium 3.2 L, Chloride 112 H, Carbon Dioxide 31 H , Anion Gap 3.2 L, BUN 17, Creatinine 0.60, Estimated Creat Clear 47, Estimated GFR 96, Est GFR ( Amer) 116, Glucose 76 D, Calcium 7.2 L I & O for Last 24 hours: Intake & Output 06/12/19 06/13/19 06/14/19 06/15/19 11:59 11:59 11:59 11:59 Intake Total 1368 / 1368 4330 / 4330 4016 / 4016 1795 / 1795 Output Total 1750 / 1750 1999 / 1999 1525 / 1525 1450 / 1450 Balance -382 / -382 2330 / 2330 2491 / 2491 345 / 345 Weight 150 lb 5 oz 145 lb 8 oz 155 lb 7 oz 152 lb Microbiology Reports for the Last 24 Hours: Microbiology 06/10/19 21:50 Urine,Catheterized Urine Culture - Final Enterococcus faecalis Streptococcus bovis - Constitutional no acute distress - *Routine Respiratory Exam Present: CTA bilaterally - *Routine Cardiovascular Exam Present: RRR - *Routine Abdominal Exam Present: soft, normoactive bowel sounds. Absent: tenderness - *Routine Extremities Exam Absent: cyanosis, clubbing, edema - *Routine Skin Exam Present: warm. Absent: rash - *Routine Neurological Exam Present: alert (Much more awake and alert, able to carry on a conversation) Assessment and Plan (1) Pneumonia Current visit: Yes Status: Acute Category: Medical Code(s): J18.9 - Pneumonia, unspecified organism (2) Septic shock Current visit: Yes Status: Acute Category: Medical Code(s): A41.9 - Sepsis, unspecified organism; R65.21 - Severe sepsis with septic shock (3) Acute renal failure Current visit: Yes Status: Acute Qualifiers: Acute renal failure type: unspecified Qualified Code(s): N17.9 - Acute kidney failure, unspecified Category: Medical Code(s): N17.9 - Acute kidney failure, unspecified (4) Anxiety Current visit: Yes Status: Chronic Category: Medical Code(s): F41.9 - Anxiety disorder, unspecified (5) Dementia Current visit: Yes Status: Chronic Category: Medical Code(s): F03.90 - Unspecified dementia without behavioral disturbance (6) Dehydration Current visit: Yes Status: Acute Category: Medical Code(s): E86.0 - Dehydration (7) Hypernatremia Current visit: Yes Status: Acute Category: Medical Code(s): E87.0 - Hyperosmolality and hypernatremia (8) Elevated troponin Current visit: Yes Status: Acute Category: Medical Code(s): R79.89 - Other specified abnormal findings of blood chemistry (9) DNR (do not resuscitate) Current visit: Yes Status: Acute Category: Medical Code(s): Z66 - Do not resuscitate (10) Hypokalemia Current visit: Yes Status: Acute Category: Medical Code(s): E87.6 - Hypokalemia (11) Sacral decubitus ulcer Current visit: Yes Status: Acute Category: Medical Code(s): L89.159 - Pressure ulcer of sacral region, unspecified stage - Assessment and plan all Dx Assessment and Plan for all problems:: White blood cell count is still normal. Potassium has improved. Urine culture is positive for Enterococcus faecalis as well as Streptococcus bovis. Both are sensitive to vancomycin. <Ayaan Veronica - Last Filed: 06/15/19 10:46> Internal Medicine - PN: Subj *Date: 06/15/19 *Time: 10:43 Exam Vital signs and Labs for Last 24 Hours: Temp Pulse Resp BP Pulse Ox 97.7 F 54 L 22 143/57 H 95 06/15/19 08:00 06/15/19 08:00 06/15/19 08:00 06/15/19 08:00 06/15/19 08:00 Laboratory Results - last 24 hr 06/15/19 06:20: Sodium 143, Potassium 3.2 L, Chloride 112 H, Carbon Dioxide 31 H , Anion Gap 3.2 L, BUN 17, Creatinine 0.60, Estimated Creat Clear 47, Estimated GFR 96, Est GFR ( Amer) 116, Glucose 76 D, Calcium 7.2 L I & O for Last 24 hours: Intake & Output 06/12/19 06/13/19 06/14/19 06/15/19 11:59 11:59 11:59 11:59 Intake Total 1368 / 1368 4330 / 4330 4016 / 4016 1795 / 1795 Output Total 1750 / 1750 1999 / 1999 1525 / 1525 1450 / 1450 Balance -382 / -382 2330 / 2330 2491 / 2491 345 / 345 Weight 150 lb 5 oz 145 lb 8 oz 155 lb 7 oz 152 lb Microbiology Reports for the Last 24 Hours: Microbiology 06/10/19 21:50 Urine,Catheterized Urine Culture - Final Enterococcus faecalis Streptococcus bovis Assessment and Plan (1) Pneumonia Current visit: Yes Status: Acute Category: Medical Code(s): J18.9 - Pneumonia, unspecified organism (2) Septic shock Current visit: Yes Status: Acute Category: Medical Code(s): A41.9 - Sepsis, unspecified organism; R65.21 - Severe sepsis with septic shock (3) Acute renal failure Current visit: Yes Status: Acute Qualifiers: Acute renal failure type: unspecified Qualified Code(s): N17.9 - Acute kidney failure, unspecified Category: Medical Code(s): N17.9 - Acute kidney failure, unspecified (4) Anxiety Current visit: Yes Status: Chronic Category: Medical Code(s): F41.9 - Anxiety disorder, unspecified (5) Dementia Current visit: Yes Status: Chronic Category: Medical Code(s): F03.90 - Unspecified dementia without behavioral disturbance (6) Dehydration Current visit: Yes Status: Acute Category: Medical Code(s): E86.0 - Dehydration (7) Hypernatremia Current visit: Yes Status: Acute Category: Medical Code(s): E87.0 - Hyperosmolality and hypernatremia (8) Elevated troponin Current visit: Yes Status: Acute Category: Medical Code(s): R79.89 - Other specified abnormal findings of blood chemistry (9) DNR (do not resuscitate) Current visit: Yes Status: Acute Category: Medical Code(s): Z66 - Do not resuscitate (10) Hypokalemia Current visit: Yes Status: Acute Category: Medical Code(s): E87.6 - Hypokalemia (11) Sacral decubitus ulcer Current visit: Yes Status: Acute Qualifiers: Pressure injury stage: stage 2 Qualified Code(s): L89.152 - Pressure ulcer of sacral region, stage 2 Category: Medical Code(s): L89.159 - Pressure ulcer of sacral region, unspecified stage - Assessment and plan all Dx Assessment and Plan for all problems:: Patient seen and examined this morning. She is quite calm and cooperative. She remains confused. She has been eating some. She is tolerating her medication. A bed has been found available at [facility] and she is stable for discharge today. I have spoken with her son who is in agreement with placement at [facility]. She will continue on Zyvox for additional 5 days. Will pursue PT and OT evaluations at [facility].
--- NOTE | 2019-06-15 09:18 | Discharge Summary ---
General - General Admission date:: 06/10/19 <Ayaan Veronica - 06/15/19 10:50> 06/10/19 <Berenice Roberto - 06/15/19 09:24> Discharge date: 06/15/19 <Berenice Roberto - 06/15/19 09:24> HPI HPI: Ms. Zuniga is an 83-year-old female with a history of ASCVD, anxiety disorder, recurrent DVT, hypothyroidism, TIA, and dementia who was brought to [facility] emergency room for evaluation after not responding to medication for UTI, fever and general deterioration. Son described patient as not doing well for 5 days prior to admission. They were able to get her up to go to the bathroom but she had not been out of bed for 2 days. They were able to get her to take some medicines the day prior to admission. She had not been eating and drinking. Her urine had been foul-smelling. She was evaluated in the home 06/08/2019 by [facility] nurse. At that time she had a low-grade fever. She was restarted on antibiotic for what was felt like another urinary tract infection. Additional equipment i.e. hospital bed were ordered. She did deteriorate further throughout the weekend. She was also noted by the family to be twitching. With evaluation in the emergency room she was found to have a temperature of 104.9. She was noted to be mottled with involuntary muscle movements. She was noted to be a DO NOT INTUBATE patient. She was hypotensive with a blood pressure of 58/22. White blood cell count was 19,300 With a hemoglobin of 19.4 and hematocrit of 61.1. Sodium was high at 164 with a BUN of 81 and creatinine 4.7; AST elevated at 157 and ALT at 112; Troponin I was 0.23; Lactate acid was 9.2. She was given Tylenol and aspirin and started on IV fluids at 200 an hour. She was also started on meropenem and vancomycin. She also was given a fluid bolus. She was admitted. <Berenice Roberto - 06/15/19 09:24> Hospital Course Hospital Course: The patient's initial chest x-ray showed a nonspecific opacity in the left lung base. The patient was felt to be in septic shock and was started on IV fluids and IV antibiotics. Her sodium did decrease with IV fluids and her renal function improved slightly. She was given some Ativan for agitation and anxiety. She had a repeat chest x-ray on 06/12/2019 which showed improved left basilar infiltrate and a small developing left pleural effusion. Her white blood cell count did normalize. She did have some low blood sugars, therefore her IV fluids were changed to D5W at [address] Veronica spoke with the patient's family and they were interested in long-term care placement options. The patient's agitation improved. She was able to finally take some p.o. medications. Her potassium decreased and she had to be given numerous runs of potassium. Her renal function improved greatly with fluids. By 06/14/2019, the patient began feeling better. She was able to open her eyes and answer some questions. She was able to eat some breakfast. Her potassium was still low, therefore it was replaced. Her IV fluids were able to be decreased and a PT evaluation was ordered. They felt she would need rehab at a [facility]. The patient was feeling quite a bit better by 06/15/2019 and denied any pain. Her urine culture came back positive for Enterococcus faecalis and Streptococcus bovis. Both were sensitive to vancomycin. Her blood cultures returned with no growth. She was stable to be discharged to [facility] for rehab on continued potassium as well as linezolid 600 mg twice daily for 5 more days. <Berenice Roberto - 06/15/19 09:24> Objective Vital signs: Temp Pulse Resp BP Pulse Ox 97.7 F 54 L 22 143/57 H 95 06/15/19 08:00 06/15/19 08:00 06/15/19 08:00 06/15/19 08:00 06/15/19 08:00 <Ayaan Veronica - 06/15/19 10:50> Temp Pulse Resp BP Pulse Ox 97.7 F 69 19 147/59 H 96 06/15/19 04:00 06/15/19 04:00 06/15/19 04:00 06/15/19 04:00 06/15/19 04:00 <Berenice Roberto - 06/15/19 09:24> Narrative: - Constitutional no acute distress - *Routine Respiratory Exam Present: CTA bilaterally - *Routine Cardiovascular Exam Present: RRR - *Routine Abdominal Exam Present: soft, normoactive bowel sounds. Absent: tenderness - *Routine Extremities Exam Absent: cyanosis, clubbing, edema - *Routine Skin Exam Present: warm. Absent: rash - *Routine Neurological Exam Present: alert (Much more awake and alert, able to carry on a conversation) <Berenice Roberto - 06/15/19 09:24> Results Labs on day of discharge: Labs from last 24 hours 06/15/19 06:20 Sodium 143 Potassium 3.2 L Chloride 112 H Carbon Dioxide 31 H Anion Gap 3.2 L BUN 17 Creatinine 0.60 Estimated Creat Clear 47 Estimated GFR 96 Est GFR ( Amer) 116 Glucose 76 D Calcium 7.2 L Preliminary micro results at discharge 06/10/19 21:50 Blood Culture - Preliminary Blood NO GROWTH AFTER 48 HOURS 06/10/19 21:50 Blood Culture - Preliminary Blood NO GROWTH AFTER 48 HOURS <Ayaan Veronica Peyman - 06/15/19 10:50> Labs from last 24 hours 06/15/19 06:20 Sodium 143 Potassium 3.2 L Chloride 112 H Carbon Dioxide 31 H Anion Gap 3.2 L BUN 17 Creatinine 0.60 Estimated Creat Clear 47 Estimated GFR 96 Est GFR ( Amer) 116 Glucose 76 D Calcium 7.2 L Preliminary micro results at discharge 06/10/19 21:50 Blood Culture - Preliminary Blood NO GROWTH AFTER 48 HOURS 06/10/19 21:50 Blood Culture - Preliminary Blood NO GROWTH AFTER 48 HOURS <FelisaBerenice - 06/15/19 09:24> DS: Diagnosis - Discharge Diagnosis (1) Pneumonia Status: Acute (2) Septic shock Status: Acute (3) Acute renal failure Status: Acute (4) Anxiety Status: Chronic (5) Dementia Status: Chronic (6) Dehydration Status: Acute (7) Hypernatremia Status: Acute (8) Elevated troponin Status: Acute (9) DNR (do not resuscitate) Status: Acute (10) Hypokalemia Status: Acute (11) Sacral decubitus ulcer Status: Acute <FelisaBerenice - 06/15/19 09:09> (1) Enterococcus UTI Status: Acute (2) Pneumonia Status: Acute (3) Septic shock Status: Acute (4) Acute renal failure Status: Acute (5) Anxiety Status: Chronic (6) Dementia Status: Chronic (7) Dehydration Status: Acute (8) Hypernatremia Status: Acute (9) Elevated troponin Status: Acute (10) DNR (do not resuscitate) Status: Acute (11) Hypokalemia Status: Acute (12) Sacral decubitus ulcer Status: Acute Problem details: Stage 2 <JeremíasAyaan Peyman - 06/15/19 10:50> Discharge Plan - Patient Discharge Instructions ACTIVITY: Continue current activity <Berenice Roberto 06/15/19 09:24> DIET: regular diet <Berenice Roberto 06/15/19 09:24> Additional Instructions: PT/OT eval <Ayaan Veronica - 06/15/19 10:50> Patient Instructions: Septic Shock, DI for Dehydration -- Adult, Acute Renal Failure, DI for Hypernatremia <Ayaan Veronica - 06/15/19 10:50> Forms: <Ayaan Veronica - 06/15/19 10:50> - Follow up Plan Follow up with: <Ayaan Veronica - 06/15/19 10:50> Disposition: Xfer SNF <Ayaan Veronica - 06/15/19 10:50> Home Medications: Home Medications Medication Instructions Recorded Confirmed Type Citalopram Hydrobromide [Celexa] 40 mg PO DAILY 06/06/17 06/11/19 History Donepezil HCl [Aricept 10mg 10 mg PO HS 06/06/17 06/11/19 History tablet] Levothyroxine Sodium 75 mcg PO DAILY 06/06/17 06/11/19 History [Levothyroxine 75mcg (0.075mg) Tab] Multivitamin [Multivitamins] 1 tab PO DAILY 06/06/17 06/11/19 History Oxybutynin Chloride [Ditropan Xl] 10 mg PO DAILY 06/06/17 06/11/19 History Pantoprazole Sodium [Protonix 40mg 40 mg PO BID 06/06/17 06/11/19 History tablet] Simvastatin 40 mg PO HS 06/06/17 06/11/19 History Aspirin [Aspir 81] 81 mg PO DAILY 06/10/19 06/11/19 History Acetaminophen [Tylenol elixir 325 mg PO Q4HP PRN 06/11/19 06/11/19 History 325mg/10.15mL UDC] Linezolid 600 mg PO BID 5 Days #10 tab 06/15/19 Rx Potassium Chloride 10 meq PO DAILY #30 tablet.er 06/15/19 Rx <Ayaan Veronica - 06/15/19 10:50> Prescriptions/Medication Reconciliation: New Potassium Chloride 10 meq PO DAILY #30 tablet.er Linezolid 600 mg PO BID 5 Days #10 tab Continued Levothyroxine Sodium [Levothyroxine 75mcg (0.075mg) Tab] 75 mcg PO DAILY Donepezil HCl [Aricept 10mg tablet] 10 mg PO HS Pantoprazole Sodium [Protonix 40mg tablet] 40 mg PO BID Oxybutynin Chloride [Ditropan Xl] 10 mg PO DAILY Simvastatin 40 mg PO HS Citalopram Hydrobromide [Celexa] 40 mg PO DAILY Aspirin [Aspir 81] 81 mg PO DAILY Multivitamin [Multivitamins] 1 tab PO DAILY Acetaminophen [Tylenol elixir 325mg/10.15mL UDC] 325 mg PO Q4HP PRN PRN Reason: Fever > 100.4 Discontinued hydroCHLOROthiazide [HCTZ 25mg tab] 25 mg PO DAILY levoFLOXacin [Levaquin 500mg tab] 500 mg PO DAILY Calcium Carbonate [Calcium] 600 mg PO DAILY Gabapentin [Gabapentin 100mg Cap] 100 mg PO HS <Ayaan Veronica - 06/15/19 10:50> - Problem Reconciliation Problems Reviewed?: Yes <Ayaan Veronica - 06/15/19 10:50> Yes <Berenice Roberto - 06/15/19 09:24> - Additional Information Additional Information: Patient seen and examined. Concur with assessment and plan for discharge as outlined above. <Ayaan Veronica - 06/15/19 10:50>
== END 2019-06-15 13:32 | DRG 193 ==
LOC: 2ND 21:46 → ER 21:46 → OBSVTOIN 23:20 → 2ND 23:23
PROVIDERS: ADMIT Family Medicine; ATTEND Family Medicine
CPT/HCPCS: 36415; 71010; 71045; 80048; 80053; 80076; 80202; 81001; 82803; 82962; 83605; 84443; 84484; 85007; 85025; 87040; 87086; 87088; 87186; 87275; 87276; 87506; 93005; 94760; 94761; 96365; 96366; 96367; 97162; 97530; 99285; J2185; J3370

== ENCOUNTER 2019-09-08 17:20 | Observation (INO) | payer MEDICARE, BC, MEDICAID, SELFPAY ==
[2019-09-08] VITALS (10 sets, daily range): BP systolic 50–165; BP diastolic 0–126; PULSE 50–140; RESP 20–32; TEMP 39.6–40.7; O2SAT 67–91; BMI 24.9; BMI 19.8
--- NOTE | 2019-09-08 17:25 | CT_ITS ---
PROCEDURE: CT CHEST WO CON CLINICAL INDICATION: AMS, Low O2 COMPARISON: No exams were available for comparison TECHNIQUE: Axial images obtained with sagittal and coronal reformats. All CT scans at the facility use one or more dose reduction, viz: automated exposure control, ma/kV adjustment per patient size (including targeted exams where dose is matched to indication, i.e. head), or iterative reconstruction technique. FINDINGS: HEART AND MEDIASTINAL STRUCTURES: Cardiac size is normal. There is moderate aortic tortuosity with prominent diffuse arthrosclerotic calcification of the aortic arch and especially diffusely involving the descending thoracic aorta. There is marked calcification of the tracheal cartilage rings and mainstem bronchi as well. LUNGS AND PLEURAL SPACES: Emphysematous changes are noted with hyperexpansion of the lung hess. Diffuse patchy coarse appearing pneumonic infiltrates are seen in both perihilar regions and both lower lobes with probable involvement of the anterior segment right upper lobe as well. There is minimal pleural scarring left posterior gutter. There is no definite pleural fluid. BONY STRUCTURES: There is generalized osteopenia and multilevel degenerate changes of the thoracic spine. There are compression fractures L1 and L2 likely old with L1 only mildly compressed but approximately 25-30 percent loss of height of L2. UPPER ABDOMEN: The gallbladder is distended with no obvious stones. ADDITIONAL FINDINGS: No other significant abnormalities. IMPRESSION: Moderate COPD with bilateral perihilar and lower lobe ill-defined pneumonic infiltrates Dictated by: Dr. Kelvin Justice MD 09/08/2019 19:[address] Kelvin Justice MD in [place] 09/08/2019 19:23
--- NOTE | 2019-09-08 17:25 | CT_ITS ---
PROCEDURE: CT HEAD/BRAIN WO CON CLINICAL INDICATION: AMS, Low O2 COMPARISON: HDWO CT HEAD W/O CONTRAST from 08/27/2015 TECHNIQUE: Axial images obtained. All CT scans at the facility use one or more dose reduction, viz: automated exposure control, ma/kV adjustment per patient size (including targeted exams where dose is matched to indication, i.e. head), or iterative reconstruction technique. FINDINGS: No midline shift, mass effect, intracranial hemorrhage, hydrocephalus, or extra-axial fluid collection is evident. There is a large old ischemic infarct watershed distribution between left anterior cerebral and left middle cerebral arteries as noted previously. There has been no interval extension of the infarct and/or encephalomalacia. The basilar cisterns are prominent. The sylvian fissures and cortical sulci are prominent the sulci particularly prominent over the frontal lobes as noted previously. There are mild periventricular hypodensities consistent with chronic ischemic white matter changes. The bony calvarium has an unremarkable appearance. No mastoid effusion, the internal auditory canals appear normal. No sinus air-fluid level. 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 Kelvin Justice MD 09/08/2019 19:[address] Kelvin Justice MD in [place] 09/08/2019 19:15
[2019-09-08 17:28] LABS: ABG Base Excess -8.9 mmol/L (-2.4-2.3); ABG HCO3 15.1 mmhg (22.0-26.0); ABG Oxygen Saturation 77 % (90-100); ABG PCO2 22.4 mmhg (35.0-45.0); ABG PH 7.45 mmol/L (7.35-7.45); ABG TCO2 15.8 mmhg (23-27)
[2019-09-08 17:29] LABS: Allen's Test Y; Oxygen R/A %; Source R/R
--- NOTE | 2019-09-08 17:29 | PC.NURSE ---
pt's legs and abd mottled
--- NOTE | 2019-09-08 17:30 | PC.NURSE ---
pt difficult IV stick. unsuccessful after several attempts.
--- NOTE | 2019-09-08 18:01 | PC.NURSE ---
Kika Carter at bedside doing US guided IV placement
--- NOTE | 2019-09-08 18:10 | PC.NURSE ---
IO started rt shoulder
--- NOTE | 2019-09-08 18:25 | PC.NURSE ---
called one of pts son's and verified pt code status. per brendon lozada (03/22 POA) pt is a DNR. pt is a dnr at [facility] as well. DNR was witnessed by Erma Bolaños RN as well.
[2019-09-08 18:46] LABS: Microscopic, Urine URINE MICROSCOPIC (MICROSCOPIC)
--- NOTE | 2019-09-08 19:14 | PC.NURSE ---
Dr Jeremías gonzales
--- NOTE | 2019-09-08 19:15 | PC.NURSE ---
RENEE QUINTERO speaking with Dr. Stovall
--- NOTE | 2019-09-08 19:18 | PC.NURSE ---
pt son at
--- NOTE | 2019-09-08 19:30 | HMH.EDFEV ---
ED Disposition Clinical Impression: Acute respiratory failure, Fever of unknown origin, Urinary tract infection, Dementia, Dehydration, Palliative care encounter Disposition: Admitted as Observation Condition on Discharge: Critical Referrals: Ayaan Veronica MD [Primary Care Provider] - - Critical Care Critical Care Time: No Attestation: On 09/08/19, the high probability of a clinically significant, sudden or life threatening deterioration of the following system(s) required my full and direct attention, intervention and personal management. The time I documented below is in addition to time spent performing reported procedures but includes the following listed in this critical care notation. Medical Decision Making - Medical Records Medical records reviewed: Yes: I reviewed the patient's medical records. - Raheem Inquiry Pt receiving controlled substance: No Vital Signs: 09/08/19 17:22 09/08/19 17:52 Temperature 105.2 F H Temperature Source Rectal Pulse Rate [Left Radial] 140 H 135 H Respiratory Rate 32 H Blood Pressure [Right Arm] 54/0 L 50/0 L Blood Pressure Mean [Right Arm] 18 16 Blood Pressure Source [Right Arm] Manual Cuff/ Palpation Manual Cuff/ Doppler 02 Sat by Pulse Oximetry 67 L Oxygen Delivery Method Room Air - Lab Data Lab Results 09/08/19 17:22: Specimen Source R/r, O2 % R/a, ABG pH 7.45, ABG pCO2 22.4 L, ABG pO2 44.0 L, ABG HCO3 15.1 L, ABG Total CO2 15.8 L, ABG O2 Saturation 77 L*, ABG Base Excess -8.9 L, [place] Test Y Orders (Tests/Meds): ED MEDICATIONS Generic Name Dose Route Start Last Admin Trade Name Freq PRN Reason Stop Dose Admin Sodium Chloride 1,980 mls @ 900 mls/hr 09/08/19 19:00 Sod Chlor 0.9% 1000ml Bag IV 10/08/19 18:59 .Q2H12M Sodium Chloride 1,980 mls @ 999 mls/hr 09/08/19 19:00 Sod Chlor 0.9% 1000ml Bag IV 10/08/19 18:59 .Q1H59M Sodium Chloride 1,980 mls @ 999 mls/hr 09/08/19 19:00 09/08/19 18:30 Sod Chlor 0.9% 1000ml Bag IV 09/08/19 20:58 999 mls/hr .Q1H59M LEI Administration Discontinued Medications Generic Name Dose Route Start Last Admin Trade Name Freq PRN Reason Stop Dose Admin Sodium Chloride 1,980 mls @ 999 mls/hr 09/08/19 18:45 Sod Chlor 0.9% 1000ml Bag IV 10/08/19 18:44 .Q1H59M Sodium Chloride 1,980 mls @ 999 mls/hr 09/08/19 18:40 Sod Chlor 0.9% 1000ml Bag IV 10/08/19 18:39 .Q1H59M Sodium Chloride 1,980 mls @ 999 mls/hr 09/08/19 18:45 Sod Chlor 0.9% 1000ml Bag IV 10/08/19 18:44 .Q1H59M ORDERS Category Date Time Status Complete Blood Count Auto Diff Stat Lab 09/08/19 18:30 Ordered Comprehensive Metabolic Panel Stat Lab 09/08/19 18:30 Ordered Lactic Acid Stat Lab 09/08/19 18:30 Ordered Troponin I Q3H Lab 09/08/19 20:30 Ordered Troponin I Q3H Lab 09/08/19 23:30 Ordered Troponin I Stat Lab 09/08/19 18:30 Ordered Urinalysis and Microscopic Stat Lab 09/08/19 18:30 Received Blood Culture Stat Micro 09/08/19 18:30 Ordered ABG PH Stat RT 09/08/19 17:23 Ordered Medical Decision Narrative: I spoke to family and they only want palliative care I explained to them patient is in acute respiratory failure without intubation and ventilation support patient cannot maintain life with O2 sats on a nonrebreather at 60%. I spoke to Dr. Stovall for admission for this patient for palliative care. Fever HPI - General Chief Complaint: Fever Stated Complaint: AMS, Fever, low O2 Time Seen by Provider: 09/08/19 19:30 Mode of Arrival: EMS Source of Information: EMS, Medical Record Limitations: Altered Mental Status Description of Symptoms (Recalled from ER Triage Doc. by RN): to ed per squad report of AMS, fever, and o2 sats of 70% RA starting today. pt responds to painful stimuli. report that pt has a hx of dementia but is alert and will communicate with staff. report of rectal temp of 102 today. - History of Present Illness HPI Narrative:
[2019-09-08 19:36] LABS: Basophils % 0.2 % (0.1-2.0); Eosinophils % 0.3 % (0.1-12.0); Hematocrit 47.6 % (37.0-47.0); Hemoglobin 14.9 g/dL (12.2-16.2); Lymphocytes # 1.4 K/mm3 (0.7-4.5); Lymphocytes % 8.9 % (10-50); Mean Corpuscular HGB Conc 31.4 g/dL (31.8-35.4); Mean Corpuscular Hemoglobin 31.2 pg (27.0-31.2); Mean Corpuscular Volume 99.5 fl (81-99); Mean Platelet Volume 9.9 fl (7.4-10.4); Monocytes # 0.3 K/mm3 (0.1-1.0); Monocytes % 1.8 % (1.7-9.3); Neutrophils # 13.7 K/mm3 (1.8-7.8); Neutrophils % 88.9 % (37.0-80.0); Platelet Count 190 K/mm3 (142-424); Red Blood Count 4.78 M/mm3 (4.20-5.40); Red Cell Distribution Width 16.4 % (11.5-17.5); White Blood Count 15.4 K/mm3 (4.8-10.8)
[2019-09-08 19:38] LABS: Appearance,Urine CLOUDY (Clear); Blood, Urine Negative (Negative); Color,Urine DK YELLOW (Yellow); Glucose,Urine (UA) Negative (Negative); Ketones,Urine TRACE (Negative); Leukocyte Esterase,Urine TRACE (Negative); Nitrate,Urine Negative (Negative); PH,Urine 5.5 (5.0-8.5); Protein,Urine TRACE (Negative); Specific Gravity, Urine 1.025 (1.005-1.030)
--- NOTE | 2019-09-08 19:40 | PC.NURSE ---
notified of critical labs
[2019-09-08 19:47] LABS: MANUAL DIFFERENTIAL MANUAL DIFFERENTIAL (MANUAL DIFF)
[2019-09-08 19:49] LABS: Bilirubin,Urine Negative (Negative)
[2019-09-08 19:52] LABS: Amorphous Sediment,Urine 2+ /lpf; Bacteria,Urine 2+ /lpf
--- NOTE | 2019-09-08 19:54 | PC.NURSE ---
waiting on covid testing result prior to bed assignment
[2019-09-08 20:01] LABS: Lymphocytes % 6 % (10-50); Neutrophils % 87 % (42-76); Nucleated Red Blood Cells 1; Total Cells Counted 100
[2019-09-08 20:02] LABS: Alanine Aminotransferase 35 U/L (12-78); Albumin Level 3.4 g/dl (3.5-5.0); Alkaline Phosphatase 143 U/L (38-126); Anion Gap 17.2 mEq/L (5-15); Aspartate Amino Transferase 53 U/L (14-36); Blood Urea Nitrogen 50 mg/dl (7-17); Calcium 9.4 mg/dl (8.4-10.2); Carbon Dioxide 23 mmol/L (22.0-30.0); Chloride 112 mmol/L (98-107); Creatinine Clearance Estimated 13 mL/min (50-200); Estimated Glomerular Filt Rate 12 ml/min (>60); Globulin 3.3 g/dL (1.3-3.2); Glucose 156 mg/dl (74-100); Hypersegmented Neutrophils 1+; Macrocytosis 1+; Platelet Estimate Normal; Potassium 4.2 mmoL/L (3.5-5.1); Sodium 148 mmol/L (136-145); Total Protein,Serum 6.7 g/dl (6.3-8.2)
[2019-09-08 20:03] LABS: GFR (African American) 15 ML/MIN (>60)
[2019-09-08 20:14] LABS: Troponin I 0.46 ng/ml (0.00-0.034)
[2019-09-08 20:17] LABS: Adenovirus,PCR Not Detected (NotDetected); Bordetella Pertussis Not Detected (NotDetected); Chlamydophila Pneumoniae, PCR Not Detected (NotDetected); Coronavirus 19, PCR Not Detected (NotDetected); Coronavirus 229E Not Detected (NotDetected); Coronavirus NL63 Not Detected (NotDetected); Coronavirus OC43 Not Detected (NotDetected); Coronovirus HKU1,PCR Not Detected (NotDetected); Human Metapneumovirus Not Detected (NotDetected); Influenza A, PCR Not Detected (NotDetected); Influenza AH1, 2009 Not Detected (NotDetected); Influenza AH1, PCR Not Detected (NotDetected); Influenza AH3,PCR Not Detected (NotDetected); Influenza B, PCR Not Detected (NotDetected); Mycoplasma Pneumoniae, PCR Not Detected (NotDected); Parainfluenza 1, PCR Not Detected (NotDetected); Parainfluenza 2, PCR Not Detected (NotDetected); Parainfluenza 3, PCR Not Detected (NotDetected); Parainfluenza 4, PCR Not Detected (NotDetected); Respiratory Syncytial Virus Not Detected (NotDetected); Rhinovirus/Enterovirus Not Detected (NotDetected)
--- NOTE | 2019-09-08 20:19 | PC.NURSE ---
lab at bedside at this time.
--- NOTE | 2019-09-08 20:45 | PC.NURSE ---
family remains at bedside
--- NOTE | 2019-09-08 22:13 | PC.NURSE ---
assisted lab for second troponin level. bp cycled with permission of family. pt has no obvious changes at this time.
[2019-09-08 22:19] LABS: Reflex Lactic Add Lactic Reflex
--- NOTE | 2019-09-08 22:25 | PC.NURSE ---
Report received from ER @2207. Pt admitted to floor on palliative care and DNR. Spoke with MD Stovall @ 2213. Pt had not arrived to floor yet. Notified MD that pt met sepsis criteria. 2225, Notified ER that pt will need tissue reperfusion. Clarified orders. Levaquin has not been administered yet. Will administer when pt arrives to floor.
--- NOTE | 2019-09-08 22:34 | PC.NURSE ---
call placed to star castanon rn for confirmation of care of patient re: lactic acid.
--- NOTE | 2019-09-08 22:37 | PC.NURSE ---
registration left voicemail. waiting on return call-philippe morgan
--- NOTE | 2019-09-08 22:38 | PC.NURSE ---
PT ARRIVED TO THE FLOOR VIA STRETCHER FROM ED @ [phone].
[2019-09-08 22:43] LABS: Lactic Acid Follow Up (RFLX 1) 7.2 mmol/L (0.7-2.1)
[2019-09-08 22:54] LABS: Troponin I 0.56 ng/ml (0.00-0.034)
--- NOTE | 2019-09-08 23:30 | PC.NURSE ---
Family at bedside, Ayaan Zuniga. Verified code status, DNR. States that he spoke with MD Roberts about pt condition and confirms that he and family agree with palliative care. He does not want pt to be turned or repositioned or any additional vital signs tonight. Pt is currently on 100% nonrebreather, R 24. Pt extremities cool and mottled. Consent obtained for pictures. 0.5 cm ulcer on coccyx and two areas of shearing on back. Morphine 4 mg administered for discomfort.
--- NOTE | 2019-09-08 23:46 | PC.NURSE ---
call placed to star castanon via registration prior to taking patient to floor. discussed with lighthouse keeper and it is agreed there will be no tissue reperfusion ordered. pt is palliative-end of life per md note and will be continued as such.
[2019-09-09 00:19] LABS: Reflex Lactic (2 hrs) Add Lactic Reflex
[2019-09-09 01:07] LABS: Lactic Acid Follow up (RFLX 2) 6.5 mmol/L (0.7-2.1)
[2019-09-09 08:00] VITALS: BP 86/71; PULSE 82; RESP 20; TEMP 38; O2SAT 97
--- NOTE | 2019-09-09 08:37 | HMH.HP ---
*Admission Date: 09/08/19 *Chief complaint: pneumonia, sepsis *History of present illness: Ms. Zuniga is an 84-year-old white female with a history of ASCVD, cerebrovascular disease, hypothyroidism, dementia, and chronic urinary tract infections who has been residing at [facility] since May 2019 after an [facility] admission for urinary tract infection and sepsis. She was seen to the emergency room from [facility] yesterday with fever and respiratory distress. She was evaluated in the emergency room and and found to have pneumonia and sepsis. Family decided that they wanted measures of comfort only and she has been admitted for palliative care. She is rested fairly well through the night. Respirations have been shallow and she has been mottled. No apparent pain. [facility] History Medical History: Reports:: Anxiety, Atherosclerotic Heart Disease, Coronary Artery Disease, Cerebrovascular Accident, Deep Vein Thrombosis, Dementia, Depression, Hyperlipidemia, Hypertension, Myocardial Infarction, Transient Ischemic Attacks (TIA), Urinary Tract Infection Denies:: Cancer, Diabetes Mellitus Type 1, Diabetes Mellitus Type 2, MRSA *Have you ever received a pneumonia vaccine?: No *Have you received a flu vaccine this season?: Yes Other Medical History: Reports: Arthritis, Hypothyroidism, Thyroid Disease Other Surgeries: Yes: Colonoscopy (2014), Hysterectomy-Total, Other Amputation: No Fractures: No - *Social History Educational Level: Completed GED/General Educational Development Smoking Status: Former smoker Tobacco Type: cigarettes # Packs/Day (cigarettes): 1 #Yrs smoked (if former smoker): 30 Alcohol Intake: never Substance Use Type: denies use *Occupational Status:: retired Housing: other Household Members: none *Travel in the last 8 weeks: None - Psychiatric History Pschychiatric History:: Reports:: Anxiety, Depression Family Hx:: Cancer, Stroke Review of Systems - Review of Systems Review of systems:: unable to obtain - *Neurologic Reports abnormal hearing Meds Home Medications Medication Instructions Recorded Confirmed Type Donepezil HCl [Aricept 10mg 10 mg PO HS 06/06/17 09/09/19 History tablet] Levothyroxine Sodium 75 mcg PO DAILY 06/06/17 09/09/19 History [Levothyroxine 75mcg (0.075mg) Tab] Multivitamin [Multivitamins] 1 tab PO DAILY 06/06/17 09/09/19 History Oxybutynin Chloride [Ditropan Xl] 10 mg PO DAILY 06/06/17 09/09/19 History Simvastatin 20 mg PO HS 06/06/17 09/09/19 History Aspirin [Aspir 81] 81 mg PO DAILY 06/10/19 09/09/19 History Acetaminophen [Tylenol 500mg 1,000 mg PO Q6HP PRN 09/09/19 09/09/19 History tablet] Acetaminophen [Tylenol 500mg 500 mg PO QID 09/09/19 09/09/19 History tablet] Acetaminophen with Codeine 1 each PO QID 09/09/19 09/09/19 History [Tylenol with Codeine #3 tablet] Gabapentin [Gabapentin 100mg Cap] 100 mg PO BID 09/09/19 09/09/19 History Menthol/Zinc Oxide [Remedy 1 applicatio TP DAILY 09/09/19 09/09/19 History Calazime Protect Paste] Mirtazapine [Remeron] 15 mg PO HS 09/09/19 09/09/19 History Nystatin [Nystatin Oint 100,000 1 applicatio TP TID 09/09/19 09/09/19 History Units/GM 15GM] Omeprazole [Omeprazole 20mg 20 mg PO HS 09/09/19 09/09/19 History Capsule] Potassium Chloride 20 meq PO TID 09/09/19 09/09/19 History fentaNYL [fentaNYL Patch 12mcg/hr] 12 mcg TD Q72H 09/09/19 09/09/19 History hydrOXYzine pamoate [Vistaril 25mg 25 mg PO Q6H PRN 09/09/19 09/09/19 History capsule] polyethylene glycoL 3350 [Miralax 17 gm PO DAILY 09/09/19 09/09/19 History 17gm Packet] Allergies Allergy/AdvReac Type Severity Reaction Status Date / Time brompheniramine Allergy Unknown Verified 01/03/18 09:09 [From DRIXORAL] cephalexin [CEPHALEXIN] Allergy Unknown Verified 06/10/19 21:48 Cephalosporins Allergy Unknown Verified 06/10/19 21:48 [CEPHALOSPORINS] dexbrompheniramine Allergy Unknown Verified
--- NOTE | 2019-09-09 09:22 | P.CONPHA_ITS ---
[facility] Pharmacy VTE Monitoring - Patient Demographics Admission date: 09/08/19 Report Date: 09/09/19 Time: : Allergies/Adverse Reactions: Patient Allergies brompheniramine [From DRIXORAL] Allergy (Unknown, Verified 01/03/18 09:09) cephalexin [CEPHALEXIN] Allergy (Unknown, Verified 06/10/19 21:48) Cephalosporins [CEPHALOSPORINS] Allergy (Unknown, Verified 06/10/19 21:48) dexbrompheniramine [From DRIXORAL] Allergy (Unknown, Verified 06/10/19 21:48) ibuprofen [IBUPROFEN] Allergy (Unknown, Verified 06/10/19 21:48) nitrofurantoin [NITROFURANTOIN] Allergy (Unknown, Verified 06/10/19 21:48) Penicillins [PENICILLINS] Allergy (Unknown, Verified 06/10/19 21:48) pseudoephedrine [From DRIXORAL] Allergy (Unknown, Verified 06/10/19 21:48) Sulfa (Sulfonamide Antibiotics) [SULFA (SULFONAMIDE ANTIBIOTICS)] Allergy (Unknown, Verified 06/10/19 21:48) Height: 1.63 m Weight: 53.24 kg Patient Problems: Current Active Problems Urinary tract infection (Acute) Dehydration (Acute) Dementia (Chronic) Acute respiratory failure (Acute) Fever of unknown origin (Acute) Palliative care encounter (Acute) Acute on chronic renal failure (Acute) - VTE Risk Labs: VTE Related Lab Results Hgb 14.9 g/dL (12.2-16.2) 09/08/19 19:20 Hct 47.6 % (37.0-47.0) H 09/08/19 19:20 Plt Count 190 K/mm3 (142-424) 09/08/19 19:20 BUN 50 mg/dl (7-17) H 09/08/19 19:20 Creatinine 3.50 mg/dl (0.52-1.04) H 09/08/19 19:20 Estimated Creat Clear 13 mL/min (50-200) 09/08/19 19:20 - Prophylaxis VTE Prophylaxis Ordered?: Yes Types of VTE Prophylaxis: TEDS Knee High Location of Applied Device: Bilateral Lower Extremeties
--- NOTE | 2019-09-09 10:30 | PC.NURSE ---
Pt resting at this time in bed. RR even and shallow at 20 breaths per minute. Skin is cool to touch and mottled/pallor. Has had x 1 loose bm this am, turned - repositioned. Indwelling cath in place and cath care given per staff. Pt is non responsive and continues on non rebreather. Will cont to mx this shift.
--- NOTE | 2019-09-09 13:26 | HMH.ACPN2 ---
Internal Medicine - PN: Subj *Date: 09/09/19 *Time: 13:26 Interval history: Patient at 1305. He son was with her. Exam Vital signs and Labs for Last 24 Hours: Temp Pulse Resp BP Pulse Ox 100.4 F H 82 20 86/71 L 97 09/09/19 08:00 09/09/19 08:00 09/09/19 08:00 09/09/19 08:00 09/09/19 08:00 Laboratory Results - last 24 hr 09/08/19 17:22: Specimen Source R/r, O2 % R/a, ABG pH 7.45, ABG pCO2 22.4 L, ABG pO2 44.0 L, ABG HCO3 15.1 L, ABG Total CO2 15.8 L, ABG O2 Saturation 77 L*, ABG Base Excess -8.9 L, [place] Test Y 09/08/19 18:30: Urine Color Dk yellow, Urine Appearance Cloudy, Urine pH 5.5, Ur Specific [place] 1.025, Urine Protein Trace, Urine Glucose (UA) Negative, Urine Ketones Trace, Urine Blood Negative, Urine Nitrate Negative, Urine Bilirubin Negative, Urine Urobilinogen 1.0, Ur Leukocyte Esterase Trace, Urine WBC 10-20, Amorphous Sediment 2+, Urine Bacteria 2+ 09/08/19 19:20: WBC 15.4 H, RBC 4.78, Hgb 14.9, Hct 47.6 H, MCV 99.5 H, MCH 31.2, MCHC 31.4 L, RDW 16.4, Plt Count 190, MPV 9.9, Neut % (Auto) 88.9 H, Lymph % (Auto) 8.9 L, [place] % (Auto) 1.8, Eos % (Auto) 0.3, Baso % (Auto) 0.2, Neut # (Auto) 13.7 H, Lymph # (Auto) 1.4, [place] # (Auto) 0.3, Eos # (Auto) 0.0, Baso # (Auto) 0.0, Total Counted 100, Neutrophils % (Manual) 87 H, Band Neutrophils % 7.0, Lymphocytes % (Manual) 6 L, Nucleated RBCs 1, Hypersegmented Neuts 1+, Platelet Estimate Normal, RBC Morphology Not Reportable, Macrocytosis 1+ 09/08/19 19:20: Sodium 148 H, Potassium 4.2, Chloride 112 H, Carbon Dioxide 23, Anion Gap 17.2 H, BUN 50 H, Creatinine 3.50 H, Estimated Creat Clear 13, Estimated GFR 12 L*, Est GFR ( Amer) 15 L*, Glucose 156 H, Calcium 9.4, Total Bilirubin 1.0, AST 53 H, ALT 35, Alkaline Phosphatase 143 H, Troponin I 0.46 H, Total Protein 6.7 D, Albumin 3.4 L, Globulin 3.3 H, Albumin/Globulin Ratio 1.0 L 09/08/19 19:20: Lactate 8.0 H 09/08/19 20:10: Chlamy pneumoniae PCR Not detected, Adenovirus (PCR) Not detected, B. pertussis DNA (PCR) Not detected, Coronavirus OC43 (PCR) Not detected, Coronavirus HKU1 (PCR) Not detected, Coronavirus 229E (PCR) Not detected, COVID-19 PCR Not detected, Coronavirus NL63 (PCR) Not detected, Human Metapneumovir PCR Not detected, Influenza A (H1) PCR Not detected, Influ A (H1N1/09) PCR Not detected, Influenza A (H3) PCR Not detected, Influenza Type A (PCR) Not detected, Influenza Type B (PCR) Not detected, M. pneumoniae (PCR) Not detected, Parainfluenza 1 (PCR) Not detected, Parainfluenza 2 (PCR) Not detected, Parainfluenza 3 (PCR) Not detected, Parainfluenza 4 (PCR) Not detected, RSV (PCR) Not detected, Entero/Rhino (PCR) Not detected 09/08/19 22:15: Troponin I 0.56 H 09/08/19 22:15: Lactate 7.2 H 09/09/19 00:45: Lactate 6.5 H I & O for Last 24 hours: Intake & Output 09/07/19 09/08/19 09/09/19 09/10/19 11:59 11:59 11:59 11:59 Intake Total 0 / 0 Output Total 51 / 51 Balance -51 / -51 Weight 117 lb 6 oz Microbiology Reports for the Last 24 Hours: Microbiology 09/08/19 18:30 Urine,Catheterized Urine Culture - Preliminary - Constitutional Comments: Pulseless and non breathing. Assessment and Plan (1) Septic shock Current visit: No Status: Acute Category: Medical Code(s): A41.9 - Sepsis, unspecified organism; R65.21 - Severe sepsis with septic shock (2) Pneumonia Current visit: No Status: Acute Category: Medical Code(s): J18.9 - Pneumonia, unspecified organism (3) Acute respiratory failure Current visit: Yes Status: Acute Category: Medical Code(s): J96.00 - Acute respiratory failure, unspecified whether with hypoxia or hypercapnia (4) Acute on chronic renal failure Current visit: Yes Status: Acute Category: Medical Code(s): N17.9 - Acute kidney failure, unspecified; N18.9 - Chronic kidney disease, unspecified (5) Palliative care encounter Current visit: Yes Status: Acute Category: Medical Code(s): Z51.5 - Encounter for p
--- NOTE | 2019-09-09 13:59 | PC.NURSE ---
notified Luciano Clark with [facility] Coroners office. Pt is not a Coroners case. body is ok to be released to [facility].
--- NOTE | 2019-09-09 14:09 | PC.NURSE ---
Pt at 1305 with son at bedside. Dr. Stovall precision lens polisher paged, he returned call at 1318. Dr. Stovall here at bedside @ 1325. Contacted [facility] and spoke with Genie Schwartz - [phone]. Have also contacted [facility] and spoke with Chano at [phone].
--- NOTE | 2019-09-10 15:00 | HMH.DCSUM ---
General - General Admission date:: 09/08/19 <Ayaan Veronica - 10/10/19 13:19> 09/08/19 <Angelica Barron - 09/10/19 15:15> Discharge date: 09/09/19 <Angelica Barron - 09/10/19 15:15> HPI HPI: Ms. Zuniga was an 84-year-old white female with a history of ASCVD, cerebrovascular disease, hypothyroidism, dementia, and chronic urinary tract infections who had been residing at [facility] since May 2019 after a [facility] admission for urinary tract infection and sepsis. She was sent to the emergency room from [place] with fever and respiratory distress. She was evaluated in the emergency room and found to have pneumonia and sepsis. Family decided that they wanted measures of comfort only and she was admitted for palliative care. She had rested fairly well through the night. Respirations were shallow and she was mottled. No apparent pain. <Angelica Barron - 09/10/19 15:15> Hospital Course Hospital Course: In the emergency room patient did receive IV fluid boluses. She was started on oxygen due to respiratory failure. O2 sats on a non-rebreather were at 60% with a shallow respiratory effort of 55/min. Family at this point on admission requested palliative treatment only. Patient was noted to have a living well and requested no extraordinary measures and specifically a DNI and a DNR. Patient was seen by Dr. Veronica and noted family was well aware of the severity of her illness and understood that she was terminal. She continue with IV fluids and IV antibiotics but otherwise they wished for her to have only measures of comfort. She appeared to be actively dying at this point and not likely to survive the next 24 hours. Patient was kept comfortable. On 09/09/2019 patient was noted to have passed at 1305. Her son was with her. Body was released to [facility]. <Angelica Barron - 09/10/19 15:15> Objective Vital signs: Temp Pulse Resp BP Pulse Ox 100.4 F H 82 20 86/71 L 97 09/09/19 08:00 09/09/19 08:00 09/09/19 08:00 09/09/19 08:00 09/09/19 08:00 <Ayaan Veronica - 10/10/19 13:19> Temp Pulse Resp BP Pulse Ox 100.4 F H 82 20 86/71 L 97 09/09/19 08:00 09/09/19 08:00 09/09/19 08:00 09/09/19 08:00 09/09/19 08:00 <Angelica Barron - 09/10/19 15:15> Narrative: Exam Vital signs and Labs for Last 24 Hours: Temp Pulse Resp BP Pulse Ox 100.4 F H 82 20 86/71 L 97 09/09/19 08:00 09/09/19 08:00 09/09/19 08:00 09/09/19 08:00 09/09/19 08:00 Laboratory Results - last 24 hr 09/08/19 17:22: Specimen Source R/r, O2 % R/a, ABG pH 7.45, ABG pCO2 22.4 L, ABG pO2 44.0 L, ABG HCO3 15.1 L, ABG Total CO2 15.8 L, ABG O2 Saturation 77 L*, ABG Base Excess -8.9 L, [place] Test Y 09/08/19 18:30: Urine Color Dk yellow, Urine Appearance Cloudy, Urine pH 5.5, Ur Specific Radnor 1.025, Urine Protein Trace, Urine Glucose (UA) Negative, Urine Ketones Trace, Urine Blood Negative, Urine Nitrate Negative, Urine Bilirubin Negative, Urine Urobilinogen 1.0, Ur Leukocyte Esterase Trace, Urine WBC 10-20, Amorphous Sediment 2+, Urine Bacteria 2+ 09/08/19 19:20: WBC 15.4 H, RBC 4.78, Hgb 14.9, Hct 47.6 H, MCV 99.5 H, MCH 31.2, MCHC 31.4 L, RDW 16.4, Plt Count 190, MPV 9.9, Neut % (Auto) 88.9 H, Lymph % (Auto) 8.9 L, Mclean % (Auto) 1.8, Eos % (Auto) 0.3, Baso % (Auto) 0.2, Neut # (Auto) 13.7 H, Lymph # (Auto) 1.4, Mclean # (Auto) 0.3, Eos # (Auto) 0.0, Baso # (Auto) 0.0, Total Counted 100, Neutrophils % (Manual) 87 H, Band Neutrophils % 7.0, Lymphocytes % (Manual) 6 L, Nucleated RBCs 1, Hypersegmented Neuts 1+, Platelet Estimate Normal, RBC Morphology Not Reportable, Macrocytosis 1+ 09/08/19 19:20: Sodium 148 H, Potassium 4.2, Chloride 112 H, Carbon Dioxide 23, Anion Gap 17.2 H, BUN 50 H, Creatinine 3.50 H, Estimated Creat Clear 13, Estimated GFR 12 L*, Est GFR ( Amer) 15 L*, Glucose 156 H, Calcium 9.4, Total Bilirubin 1.0, AST 53 H, ALT 35, Alkaline P
--- NOTE | 2019-09-10 15:16 | P.DN_ITS ---
Pronouncement Note - Date and Time of Date of : 09/09/19 Time of : 13:05 - PCOD Preliminary cause of : Pneumonia - Additional Data Confirmation of : no pulse, no respirations, no heart sounds Family: at bedside Attending/PCP notified?: Yes Attending physician: Ayaan Veronica MD Was code activated?: No Autopsy requested?: No qualifications examiner notified?: No Organ bank notified?: Yes Advance directives: Yes
--- NOTE | 2019-09-11 08:16 | HMH.DEADDC ---
Discharge Sum: Prov - Provider Primary care physician: Ayaan Veronica MD Visit Care Team Role Provider Type Jah Roberts MD Emergency Provider ER Physician Ayaan Veronica MD Attending Provider Staff Physician Primary Care Provider Paris Stovall MD Admit Provider Staff Physician Admitting clinician: Paris Stovall Attending physician on admission: Ayaan Veronica Consults: none Pronouncing clinician: Paris Stovall Discharge Sum: Summary - Date and Time Date of admission: 09/08/19 23:32 Date of : 09/09/19 Time of : 13:05 - Hospital Course prior to Hospital Course Information: Hospital Course: In the emergency room patient did receive IV fluid boluses. She was started on oxygen due to respiratory failure. O2 sats on a non-rebreather were at 60% with a shallow respiratory effort of 55/min. Family at this point on admission requested palliative treatment only. Patient was noted to have a living well and requested no extraordinary measures and specifically a DNI and a DNR. Patient was seen by Dr. Veronica and noted family was well aware of the severity of her illness and understood that she was terminal. She continue with IV fluids and IV antibiotics but otherwise they wished for her to have only measures of comfort. She appeared to be actively dying at this point and not likely to survive the next 24 hours. Patient was kept comfortable. On 09/09/2019 patient was noted to have passed at 1305. Her son was with her. Body was released to [facility] home. - Summary Details: peacefully - Additional Data Confirmation of as documented by pronouncing clinician: no pulse, no respirations, no heart sounds Family: at bedside Attending/PCP notified?: Yes Attending physician: Ayaan Veronica MD Was code activated?: No Autopsy requested?: No land law examiner notified?: No Organ bank notified?: Yes Advance directives: Yes Hospice patient?: No
== END 2019-09-09 14:40 | disposition expired ==
LOC: ER 19:36 → 2ND 23:55
PROVIDERS: Admitting Provider Family Medicine; Emergency Provider Family Medicine; PCP Family Medicine; Visit Provider Family Medicine
DX: A41.9 Sepsis, unspecified organism (principal); R65.21 Severe sepsis with septic shock; J18.9 Pneumonia, unspecified organism; J96.00 Acute respiratory failure, unspecified whether with hypoxia or hypercapnia; I12.9 Hypertensive chronic kidney disease with stage 1 through stage 4 chronic kidney disease, or unspecified chronic kidney disease; N18.9 Chronic kidney disease, unspecified; N17.9 Acute kidney failure, unspecified; E03.9 Hypothyroidism, unspecified; I25.10 Atherosclerotic heart disease of native coronary artery without angina pectoris; I25.2 Old myocardial infarction; Z66 Do not resuscitate; Z51.5 Encounter for palliative care; Z87.891 Personal history of nicotine dependence; Z88.0 Allergy status to penicillin; Z88.2 Allergy status to sulfonamides; Z88.1 Allergy status to other antibiotic agents; Z79.899 Other long term (current) drug therapy
CPT/HCPCS: 36415; 70450; 71250; 80053; 81001; 82803; 83605; 84484; 85007; 85025; 87040; 87086; 87088; 87186; 87581; 87633; 87798; 94760; 96365; 99285; G0378; J1642; J1956